=== PATIENT | male | born 1965 | race Caucasian/White ===

== ENCOUNTER → 2019-01-30 09:19 | Outpatient (CLI) | payer OTHER, SELFPAY ==
[2019-01-30 11:14] LABS: Alanine Aminotransferase 43 U/L (12-78); Albumin Level 3.8 gm/dL (3.4-5.0); Alkaline Phosphatase 66 U/L (46-116); Aspartate Amino Transferase 13 U/L (15-37); Bilirubin,Total 0.5 mg/dL (0.2-1.0); Blood Urea Nitrogen 14 mg/dL (7-18); Calcium 8.6 mg/dL (8.5-10.1); Carbon Dioxide 27 mmol/L (21.0-32.0); Chloride 103 mmol/L (98-107); Chol/HDL Ratio 4.1 (1-3.5); Cholesterol 215 mg/dL (140-200); Creatinine,Serum 0.73 mg/dL (0.70-1.30); Estimated Glomerular Filt Rate 113 ml/min (>60); GFR (African American) 137 ML/MIN (>60); Globulin 3.8 gm/dl (1.3-3.2); Glucose 93 mg/dL (74-106); HDL Cholesterol 53 mg/dL (27-67); LDL Cholesterol 146 mg/dL (0-130); Sodium 140 mmol/L (136-145); Thyroid Stimulating Hormone 0.98 uIU/ml (0.358-3.740); Total Protein,Serum 7.6 gm/dL (6.4-8.2); Triglycerides 80 mg/dL (30-200); VLDL Cholesterol 16 mg/dL (0-40)
[2019-02-02 13:18] LABS: Levetiracetam (Keppra) 25.4 ug/mL (10.0-40.0)
== END ==
PROVIDERS: Visit Provider Family Medicine
DX: G40.909 Epilepsy, unspecified, not intractable, without status epilepticus (principal); Z79.899 Other long term (current) drug therapy; Z13.1 Encounter for screening for diabetes mellitus; Z13.220 Encounter for screening for lipoid disorders
CPT/HCPCS: 36415; 80053; 80061; 80177; 84443

== ENCOUNTER 2019-02-02 08:21 | Day surgery (SDC) | payer OTHER, SELFPAY ==
[2019-02-02] VITALS (7 sets, daily range): BP systolic 100–117; BP diastolic 67–78; PULSE 57–71; RESP 12–18; TEMP 36.1–37.1; O2SAT 94–98; BMI 29.1
--- NOTE | 2019-02-02 09:50 | P.PCN_ITS ---
[facility] Procedure Note Procedure Note:: Upper Endoscopy Procedure Report: Esophagogastroduodenoscopy with cold biopsies Endoscopost: Edvin Campbell II, MD Referring Physician: Jay Edgar MD Date of Procedure: February 02, 2019 Equipment: Olympus GIF 180 standard upper endoscope Sedation: MAC sedation Indications: Mr. Iraheta is a 53-year-old gentleman who is here for upper endoscopy for Payne's surveillance. The patient was diagnosed with Payne's several years ago and reportedly had radiofrequency ablation/Barrx procedure in [place]. His last upper endoscopy was 3 to 4 years ago. His GERD is controlled with Prilosec daily. He reports no indigestion, dyspepsia or dysphagia. Procedure: Prior to the procedure, a history and physical exam was performed, and patient's medications and allergies were reviewed. The risks, benefits and alternatives of the sedation and procedure were discussed with the patient. All questions were answered and informed consent was obtained. The patient was brought to the procedure room. Patient identification and proposed procedure were verified by the physician and the nurse. The patient was placed in a left lateral decubitus position and the scope was passed under direct vision. Throughout the procedure, the patient's blood pressure, pulse, and oxygen saturations were monitored continuously. The upper GI endoscopy was accomplished without difficulty. The patient tolerated the procedure well. Findings: The scope was passed directly into the upper esophagus and advanced to the third portion of the duodenum. The post bulbar duodenum and duodenal bulb were normal with normal mucosa and conniventes. The scope was withdrawn through a normal duodenal bulb and pylorus into the stomach. There was mild reactive gastropathy of the antrum. The remainder of the antrum, body and fundus of the stomach were grossly normal. Upon retroflexion there was a 2 to 3 cm hiatal hernia. The scope was then withdrawn into the esophagus. There was no evidence of reflux esophagitis. There were at least 3 short tongues and 2 small islands of salmon-colored mucosa in the distal esophagus consistent with some residual Payne's esophagus. The narrowband imaging/NBI was utilized to evaluate for areas of possible dysplasia. Cold biopsies were obtained from 2 separate sites of the Payne's in the distal esophagus. There was no evidence of any dysplasia. There was no strictures and the remainder of the esophageal mucosa was normal. Impression: 1. Short segment Payne's esophagus 2. Small 2 to 3 cm hiatal hernia Plan: I will follow up the biopsies and recommend surveillance upper endoscopy again in 3 years. If there is any evidence of dysplasia on the Payne's biopsies then I would repeat radiofrequency ablation for low-grade dysplasia.
== END 2019-02-02 10:30 | disposition home or self-care (01) ==
LOC: OUTP 08:23
PROVIDERS: PCP Family Medicine; Visit Provider Internal Medicine Gastroenterology
PROC: 0DJ08ZZ Inspection of Upper Intestinal Tract, Via Natural or Artificial Opening Endoscopic (ICD-10-PCS; CPT 43235; principal; 2019-02-02 09:30)
DX: K22.70 Barrett's esophagus without dysplasia (principal); K44.9 Diaphragmatic hernia without obstruction or gangrene
CPT/HCPCS: 43239

== ENCOUNTER → 2020-11-19 13:46 | Outpatient (CLI) | payer SELFPAY ==
[2020-11-19 16:29] LABS: Coronavirus 19 IgG Antibody Negative (Negative); Coronavirus 19 IgM Antibody Negative (Negative)
== END ==
PROVIDERS: Visit Provider Internal Medicine Gastroenterology
DX: Z01.818 Encounter for other preprocedural examination (principal); Z11.52 Encounter for screening for COVID-19; Z12.11 Encounter for screening for malignant neoplasm of colon
CPT/HCPCS: 36415; 86328

== ENCOUNTER 2020-11-21 08:10 | Day surgery (SDC) | payer BC, SELFPAY ==
[2020-11-18 13:33] VITALS: BMI 28.3
[2020-11-21 08:53] VITALS: BP 124/59; PULSE 75; RESP 18; TEMP 36.1; O2SAT 98
--- NOTE | 2020-11-21 09:55 | P.PN_ITS ---
[facility] Anesthesia Checklist - Patient Identification Patient Identification: Arm Band - Structural Data Admitted From: Home Planned Operative Procedure/s: colonoscopy Consent for Planned Operative Procedure(s) Verified: Yes Verified Documents: Surgical Consent, History and Physical - NPO Status Verified Time NPO: 00:00 - Additional verifications Anesthesia Reactions: No - Airway Assessment C-Spine Mobility Assessed: Yes (mp2) TMJ Mobility Assessed: Yes Dentition: Good Dentition - Neurological Assessment Level of Consciousness: Awake, Alert - Anesthesia Plan Anesthesia Risk discussed: Yes Anesthesia Plan: Verified ASA Class: II Anesthesia Type: MAC [facility] History I have reviewed the patient's past medical history: Yes Medical History: Reports:: Cancer (skin ca), Seizures Denies:: Diabetes Mellitus Type 1, Diabetes Mellitus Type 2, Internal Pacemaker, Lung Disease, MRSA *Have you ever received a pneumonia vaccine?: No *Have you received a flu vaccine this season?: No Anesthesia experience/problems:: nac Other Surgeries: Yes: Other. No: Pacemaker Amputation: No - *Social History Last grade of school completed: High school graduate Smoking Status: Never smoker Alcohol Intake: never Alcohol Intake Frequency:: holidays/special occasions only Substance Use Type: denies use *Occupational Status:: employed Housing: house Household Members: spouse, family *Travel in the last 8 weeks: None Family Hx:: Unable to obtain
[2020-11-21 09:56] VITALS: O2SAT 97
--- NOTE | 2020-11-21 10:16 | HMH.PROC ---
[facility] Procedure Note Procedure Note:: Colonoscopy Procedure Report: Colonoscopy with cold snare polypectomy Endoscopist: Edvin Campbell II, MD Referring physician: Jay Edgar MD Date of Procedure: November 21, 2020 Equipment: Olympus 190 variable stiffness pediatric colonoscope Sedation: MAC sedation Indication: Mr. Iraheta is a 54-year-old gentleman who is here for screening colonoscopy. He reports no abdominal pain, weight loss, change in his bowel habits or rectal bleeding. He reports no family history of colon cancer. He did have some minor constipation in the last couple of months when he was on a high-protein diet. His last colonoscopy was 10 years ago in [place] and was normal. Procedure: Prior to the procedure, a history and physical exam was performed, and patient's medications and allergies were reviewed. The risks, benefits and alternatives of the sedation and procedure were discussed with the patient. All questions were answered and informed consent was obtained. The patient was brought to the procedure room. Patient identification and proposed procedure were verified by the physician and the nurse. The patient was placed in a left lateral decubitus position and the scope was passed under direct vision. Throughout the procedure, the patient's blood pressure, pulse, and oxygen saturations were monitored continuously. The colonoscopy was accomplished without difficulty. The patient tolerated the procedure well. Findings: On digital rectal examination there was normal rectal tone. There were no external hemorrhoids. The prostate was 2+, mildly firm but symmetric without nodules. The colonoscope was introduced through the anal canal to the rectum and advanced to the cecum. The ileocecal valve and appendiceal orifice were identified. The scope was advanced a short distance into the ileum which appeared grossly normal. The scope was then withdrawn into the colon. There was a single 5 mm polyp in the descending colon removed via cold snare polypectomy. The remaining cecum, ascending, transverse, descending, sigmoid and rectum were grossly normal. There were no mucosal abnormalities identified. Upon retroflexion within the rectum there were grade 1-2 internal hemorrhoids.The preparation was excellent throughout with Lane Preparation Score of 9. The cecal time was 12 minutes. Impression: 1. Diminutive descending colon polyp 2. Grade 1-2 internal hemorrhoids Plan: I will follow up the polyp pathology and recommend repeat colonoscopy again in 7-10 years based upon the polyp histology. I would encourage bulking fiber supplementation on a long-term daily maintenance basis.
[2020-11-21 10:17] VITALS: BP 92/58; PULSE 63; RESP 20; TEMP 36.1; O2SAT 91
[2020-11-21 10:30] VITALS: BP 93/63; PULSE 69; RESP 18; O2SAT 95
[2020-11-21 10:45] VITALS: BP 112/82; PULSE 76; RESP 16; O2SAT 97
== END 2020-11-21 10:45 | disposition home or self-care (01) ==
PROVIDERS: PCP Family Medicine; Visit Provider Internal Medicine Gastroenterology
PROC: 0DJD8ZZ Inspection of Lower Intestinal Tract, Via Natural or Artificial Opening Endoscopic (ICD-10-PCS; CPT 45378; principal; 2020-11-21 09:30)
DX: Z12.11 Encounter for screening for malignant neoplasm of colon (principal); K63.5 Polyp of colon; K64.0 First degree hemorrhoids; Z85.828 Personal history of other malignant neoplasm of skin; R56.9 Unspecified convulsions; Z79.899 Other long term (current) drug therapy
CPT/HCPCS: 45385

== ENCOUNTER → 2020-12-15 13:41 | Outpatient (CLI) | payer BC, SELFPAY ==
--- NOTE | 2020-12-15 13:44 | CA_ITS ---
APPROVED REPORT Left Lower Extremity Venous Study for DVT. [place] Laborer: Yue Severino RVT Indications Lower Extremity Pain: Lower Extremity Edema: Left pain and swelling LLE X 2WKS Vein Imaging CFV (L): compressive, spontaneous, phasic, augmentation FEM (L): compressive, spontaneous, phasic, augmentation POP (L): compressive, spontaneous, phasic, augmentation PTV (L): Compressible GSV (L): Compressible Peroneals (L):Compressible GAS (L): Compressible Findings Study suggests no evidence of DVT of the left lower extremity. Study suggests no evidence of SVT of the left lower extremity. 5.3 X 1.8 cm complex lesion seen in the proximal medial calf, ? hematoma. Conclusion Study suggests no evidence of DVT of the left lower extremity. Study suggests no evidence of SVT of the left lower extremity. 5.3 X 1.8 cm complex lesion seen in the proximal medial calf, ? hematoma. Suggest folow up to determine stability/resolution Critical Notification Physician Notified Date: 12/15/2020 Time: 14:21 Physician Name: Marely Freeman office Electronically signed by : Merlin Umaña MD 12/15/2020 15:49:32
[2020-12-15 15:32] LABS: Erythrocyte Sedimentation Rate 57 mm/hr (0-20)
[2020-12-15 16:17] LABS: C-Reactive Protein 37.4 mg/L (0-4)
[2020-12-17 15:10] LABS: Anti-Centromere B Antibodies <0.2 AI (0.0-0.9); Anti-Jo-1 <0.2 AI (0.0-0.9); Anti-Smith Antibody <0.2 AI (0.0-0.9); Antichromatin Antibodies <0.2 AI (0.0-0.9); Antiscleroderma-70 Antibodies <0.2 AI (0.0-0.9); RNP Antibodies <0.2 AI (0.0-0.9); Sjogren's Anti-SS-A <0.2 AI (0.0-0.9); Sjogren's Anti-SS-B <0.2 AI (0.0-0.9)
[2020-12-17 17:16] LABS: Anti-DNA (DS) Ab Qn 1 IU/mL (0-9); RA Latex Turbid. 14.1 IU/mL (0.0-13.9)
[2020-12-18 03:36] LABS: PTT-LA 42.9 sec (0.0-51.9); dRVVT 43.6 sec (0.0-47.0)
[2020-12-18 09:16] LABS: Anti-Cyclic Citrullinated Pept >250 units (0-19); Lupus Reflex Interpretation Comment: (.)
== END ==
PROVIDERS: PCP Physician Assistant; Visit Provider Physician Assistant
DX: M79.605 Pain in left leg (principal); M79.89 Other specified soft tissue disorders; M25.50 Pain in unspecified joint; R79.82 Elevated C-reactive protein (CRP)
CPT/HCPCS: 85613; 85651; 86140; 86200; 86225; 86235; 86431; 86618; 93971

== ENCOUNTER → 2021-02-16 11:29 | Outpatient (CLI) | payer BC, SELFPAY ==
[2021-02-16 12:37] VITALS: BMI 34.8
== END ==
LOC: LAB 11:29 → UTC.OUT 11:49
PROVIDERS: PCP Physician Assistant; Visit Provider Nurse Practitioner
DX: Z11.1 Encounter for screening for respiratory tuberculosis (principal)
CPT/HCPCS: 86580

== ENCOUNTER → 2021-05-27 10:32 | Outpatient (CLI) | payer BC, SELFPAY ==
[2021-05-27 11:23] LABS: Chloride 105 mmol/L (98-107); Potassium 4.7 mmoL/L (3.5-5.1); Sodium 138 mmol/L (136-145)
[2021-05-27 11:25] LABS: Basophils # 0.1 K/mm3 (0-0.2); Basophils % 0.4 % (0.1-2.0); Blood Urea Nitrogen 20 mg/dl (9-20); Eosinophils # 0.1 K/mm3 (0.0-0.4); Eosinophils % 0.6 % (0.1-12.0); Estimated Glomerular Filt Rate 118 ml/min (>60); GFR (African American) 142 ML/MIN (>60); Hematocrit 41.4 % (42.0-52.0); Hemoglobin 13.2 g/dL (14.1-18.0); Lymphocytes # 1.4 K/mm3 (0.7-4.5); Lymphocytes % 10.1 % (10-50); Mean Corpuscular HGB Conc 31.9 g/dL (31.8-35.4); Mean Corpuscular Hemoglobin 28.7 pg (27.0-31.2); Mean Corpuscular Volume 89.9 fl (80-94); Mean Platelet Volume 7.6 fl (7.4-10.4); Monocytes # 0.4 K/mm3 (0.1-1.0); Monocytes % 2.5 % (1.7-9.3); Neutrophils # 12.3 K/mm3 (1.8-7.8); Neutrophils % 86.5 % (37.0-80.0); Platelet Count 374 K/mm3 (142-424); White Blood Count 14.3 K/mm3 (4.8-10.8)
[2021-05-27 11:26] LABS: Alanine Aminotransferase 27 U/L (12-78); Albumin Level 3.7 g/dl (3.5-5.0); Albumin/Globulin Ratio 1.2 (1.1-1.8); Alkaline Phosphatase 69 U/L (38-126); Anion Gap 13.7 mEq/L (5-15); Aspartate Amino Transferase 24 U/L (17-59); Bilirubin,Total 0.4 mg/dl (0.2-1.3); Calcium 9.2 mg/dl (8.4-10.2); Carbon Dioxide 24 mmol/L (22.0-30.0); Globulin 3.2 g/dL (1.3-3.2); Glucose 113 mg/dl (74-100); Total Protein,Serum 6.9 g/dl (6.3-8.2)
[2021-05-27 11:32] LABS: C-Reactive Protein 50.4 mg/L (0-4); MANUAL DIFFERENTIAL MANUAL DIFFERENTIAL (MANUAL DIFF)
[2021-05-27 12:17] LABS: Lymphocytes % 12 % (10-50); Monocytes % 1 % (2-9); Neutrophils % 87 % (42-76); Total Cells Counted 100
[2021-05-27 12:21] LABS: Platelet Estimate Normal
[2021-05-27 14:43] LABS: Erythrocyte Sedimentation Rate 81 mm/hr (0-20)
== END ==
PROVIDERS: Visit Provider Internal Medicine Rheumatology
DX: M06.9 Rheumatoid arthritis, unspecified (principal); Z79.899 Other long term (current) drug therapy
CPT/HCPCS: 36415; 80053; 85007; 85025; 85651; 86140

== ENCOUNTER → 2021-07-16 13:09 | Outpatient (CLI) | payer BC, SELFPAY ==
[2021-07-16 13:23] LABS: Basophils # 0.1 K/mm3 (0-0.2); Basophils % 0.7 % (0.1-2.0); Eosinophils # 0.2 K/mm3 (0.0-0.4); Eosinophils % 1.2 % (0.1-12.0); Hematocrit 45.3 % (42.0-52.0); Hemoglobin 14.8 g/dL (14.1-18.0); Lymphocytes % 13.3 % (10-50); Mean Corpuscular HGB Conc 32.7 g/dL (31.8-35.4); Mean Corpuscular Hemoglobin 29.7 pg (27.0-31.2); Mean Corpuscular Volume 90.8 fl (80-94); Mean Platelet Volume 7.9 fl (7.4-10.4); Monocytes # 0.6 K/mm3 (0.1-1.0); Monocytes % 3.7 % (1.7-9.3); Neutrophils # 12.2 K/mm3 (1.8-7.8); Neutrophils % 81.2 % (37.0-80.0); Platelet Count 355 K/mm3 (142-424); Red Blood Count 4.98 M/mm3 (4.60-6.20); Red Cell Distribution Width 15.5 % (11.5-17.5)
[2021-07-16 13:25] LABS: MANUAL DIFFERENTIAL MANUAL DIFFERENTIAL (MANUAL DIFF)
[2021-07-16 13:40] LABS: Lymphocytes % 8 % (10-50); Monocytes % 3 % (2-9); Neutrophils % 89 % (42-76); Total Cells Counted 100
[2021-07-16 13:41] LABS: Platelet Estimate Normal
[2021-07-16 14:03] LABS: Erythrocyte Sedimentation Rate 11 mm/hr (0-20)
[2021-07-16 14:29] LABS: Alanine Aminotransferase 25 U/L (12-78); Albumin Level 4.2 g/dl (3.5-5.0); Albumin/Globulin Ratio 1.4 (1.1-1.8); Alkaline Phosphatase 70 U/L (38-126); Anion Gap 12.7 mEq/L (5-15); Aspartate Amino Transferase 22 U/L (17-59); Bilirubin,Total 0.4 mg/dl (0.2-1.3); Blood Urea Nitrogen 19 mg/dl (9-20); Calcium 9.4 mg/dl (8.4-10.2); Carbon Dioxide 27 mmol/L (22.0-30.0); Chloride 102 mmol/L (98-107); Estimated Glomerular Filt Rate 140 ml/min (>60); GFR (African American) 170 ML/MIN (>60); Globulin 3.1 g/dL (1.3-3.2); Glucose 103 mg/dl (74-100); Potassium 4.7 mmoL/L (3.5-5.1); Sodium 137 mmol/L (136-145); Total Protein,Serum 7.3 g/dl (6.3-8.2)
[2021-07-16 14:34] LABS: C-Reactive Protein 27.1 mg/L (0-4)
== END ==
PROVIDERS: Visit Provider Nurse Practitioner Women's Health
DX: M06.9 Rheumatoid arthritis, unspecified (principal); Z79.899 Other long term (current) drug therapy
CPT/HCPCS: 36415; 80053; 85007; 85025; 85651; 86140

== ENCOUNTER → 2021-08-20 07:15 | Outpatient (CLI) | payer BC, SELFPAY ==
[2021-08-20 07:31] LABS: Basophils # 0.2 K/mm3 (0-0.2); Basophils % 1.4 % (0.1-2.0); Eosinophils # 0.3 K/mm3 (0.0-0.4); Eosinophils % 2.9 % (0.1-12.0); Hematocrit 45.7 % (42.0-52.0); Lymphocytes # 3.7 K/mm3 (0.7-4.5); Lymphocytes % 33.4 % (10-50); Mean Corpuscular HGB Conc 32.8 g/dL (31.8-35.4); Mean Corpuscular Hemoglobin 29.6 pg (27.0-31.2); Mean Corpuscular Volume 90.3 fl (80-94); Mean Platelet Volume 7.6 fl (7.4-10.4); Monocytes # 0.6 K/mm3 (0.1-1.0); Monocytes % 5.4 % (1.7-9.3); Neutrophils # 6.3 K/mm3 (1.8-7.8); Neutrophils % 56.9 % (37.0-80.0); Platelet Count 317 K/mm3 (142-424); Red Blood Count 5.06 M/mm3 (4.60-6.20); Red Cell Distribution Width 14.8 % (11.5-17.5); White Blood Count 11.1 K/mm3 (4.8-10.8)
[2021-08-20 07:54] LABS: Erythrocyte Sedimentation Rate 8 mm/hr (0-20)
[2021-08-20 08:11] LABS: Alanine Aminotransferase 27 U/L (12-78); Albumin Level 4.1 g/dl (3.5-5.0); Albumin/Globulin Ratio 1.4 (1.1-1.8); Alkaline Phosphatase 58 U/L (38-126); Anion Gap 9.1 mEq/L (5-15); Aspartate Amino Transferase 22 U/L (17-59); Bilirubin,Total 0.6 mg/dl (0.2-1.3); Blood Urea Nitrogen 20 mg/dl (9-20); Calcium 9.7 mg/dl (8.4-10.2); Carbon Dioxide 31 mmol/L (22.0-30.0); Chloride 100 mmol/L (98-107); Estimated Glomerular Filt Rate 118 ml/min (>60); GFR (African American) 142 ML/MIN (>60); Globulin 2.9 g/dL (1.3-3.2); Glucose 86 mg/dl (74-100); Potassium 4.1 mmoL/L (3.5-5.1); Sodium 136 mmol/L (136-145)
[2021-08-20 08:16] LABS: C-Reactive Protein 21.7 mg/L (0-4)
== END ==
PROVIDERS: Visit Provider Internal Medicine Rheumatology
DX: M06.09 Rheumatoid arthritis without rheumatoid factor, multiple sites (principal); Z79.899 Other long term (current) drug therapy
CPT/HCPCS: 36415; 80053; 85025; 85651; 86140

== ENCOUNTER → 2021-10-05 10:44 | Outpatient (CLI) | payer OTHER, SELFPAY ==
[2021-10-05 11:42] LABS: Basophils # 0.1 K/mm3 (0-0.2); Basophils % 0.9 % (0.1-2.0); Eosinophils # 0.1 K/mm3 (0.0-0.4); Hematocrit 48.8 % (42.0-52.0); Hemoglobin 16.1 g/dL (14.1-18.0); Lymphocytes # 1.6 K/mm3 (0.7-4.5); Mean Corpuscular HGB Conc 32.9 g/dL (31.8-35.4); Mean Corpuscular Hemoglobin 30.8 pg (27.0-31.2); Mean Corpuscular Volume 93.6 fl (80-94); Mean Platelet Volume 8.2 fl (7.4-10.4); Monocytes # 0.4 K/mm3 (0.1-1.0); Monocytes % 3.9 % (1.7-9.3); Neutrophils # 8.4 K/mm3 (1.8-7.8); Neutrophils % 79.3 % (37.0-80.0); Platelet Count 299 K/mm3 (142-424); Red Blood Count 5.22 M/mm3 (4.60-6.20); Red Cell Distribution Width 15.2 % (11.5-17.5); White Blood Count 10.6 K/mm3 (4.8-10.8)
[2021-10-05 12:56] LABS: Alanine Aminotransferase 29 U/L (12-78); Albumin Level 4.3 g/dl (3.5-5.0); Alkaline Phosphatase 70 U/L (38-126); Aspartate Amino Transferase 24 U/L (17-59); Bilirubin,Indirect 0.4 mg/dL (0.0-0.9); Bilirubin,Total 0.4 mg/dl (0.2-1.3); Bilirubin,Unconjugated 0.3 mg/dL (0.0-1.1); Estimated Glomerular Filt Rate 88 ml/min (>60); GFR (African American) 106 ML/MIN (>60); Total Protein,Serum 7.3 g/dl (6.3-8.2)
[2021-10-05 13:02] LABS: C-Reactive Protein 8.9 mg/L (0-4)
[2021-10-05 13:39] LABS: Erythrocyte Sedimentation Rate 6 mm/hr (0-20)
== END ==
PROVIDERS: PCP Internal Medicine Rheumatology; Visit Provider Internal Medicine Rheumatology
DX: M06.9 Rheumatoid arthritis, unspecified (principal); Z79.899 Other long term (current) drug therapy
CPT/HCPCS: 36415; 80076; 82565; 85025; 85651; 86140

== ENCOUNTER → 2021-12-08 16:00 | Outpatient (CLI) | payer OTHER, SELFPAY ==
[2021-12-08 18:14] LABS: Basophils # 0.1 K/mm3 (0-0.2); Basophils % 0.7 % (0.1-2.0); Eosinophils # 0.2 K/mm3 (0.0-0.4); Eosinophils % 1.7 % (0.1-12.0); Hematocrit 46.7 % (42.0-52.0); Hemoglobin 15.7 g/dL (14.1-18.0); Lymphocytes # 2.4 K/mm3 (0.7-4.5); Lymphocytes % 27.6 % (10-50); Mean Corpuscular HGB Conc 33.6 g/dL (31.8-35.4); Mean Corpuscular Hemoglobin 31.8 pg (27.0-31.2); Mean Corpuscular Volume 94.6 fl (80-94); Mean Platelet Volume 10.3 fl (7.4-10.4); Monocytes # 0.5 K/mm3 (0.1-1.0); Monocytes % 5.2 % (1.7-9.3); Neutrophils # 5.6 K/mm3 (1.8-7.8); Neutrophils % 64.8 % (37.0-80.0); Platelet Count 321 K/mm3 (142-424); Red Blood Count 4.93 M/mm3 (4.60-6.20); Red Cell Distribution Width 15.2 % (11.5-17.5); White Blood Count 8.6 K/mm3 (4.8-10.8)
[2021-12-08 18:25] LABS: Alanine Aminotransferase 39 U/L (12-78); Albumin Level 4.2 g/dl (3.5-5.0); Albumin/Globulin Ratio 1.6 (1.1-1.8); Alkaline Phosphatase 74 U/L (38-126); Anion Gap 13.2 mEq/L (5-15); Aspartate Amino Transferase 27 U/L (17-59); Bilirubin,Total 0.4 mg/dl (0.2-1.3); Blood Urea Nitrogen 14 mg/dl (9-20); Carbon Dioxide 24 mmol/L (22.0-30.0); Chloride 107 mmol/L (98-107); Estimated Glomerular Filt Rate 118 ml/min (>60); GFR (African American) 142 ML/MIN (>60); Globulin 2.7 g/dL (1.3-3.2); Glucose 107 mg/dl (74-100); HDL Cholesterol 57 mg/dl (40-60); Potassium 4.2 mmoL/L (3.5-5.1); Sodium 140 mmol/L (136-145); Total Protein,Serum 6.9 g/dl (6.3-8.2)
[2021-12-08 18:36] LABS: Direct LDL Cholesterol 97.02 mg/dL (100-129)
[2021-12-08 18:40] LABS: Hemoglobin A1C 5.9 % (4.0-6.0)
[2021-12-08 18:42] LABS: 25-OH Vitamin D, Total 27.7 ng/mL (30-100)
[2021-12-08 18:56] LABS: Prostate Specific Ag Screen 1.8 ng/ml (0.0-4.0); Thyroid Stimulating Hormone 0.65 uIU/mL (0.465-4.68)
[2021-12-08 19:25] LABS: Chol/HDL Ratio 3.6 (1-3.5); Cholesterol 203 mg/dl (140-200); Triglycerides 230 mg/dl (30-150); VLDL Cholesterol 46 mg/dL (0-40)
[2021-12-14 12:46] LABS: Levetiracetam (Keppra) 12.6 ug/mL (10.0-40.0)
== END ==
PROVIDERS: Visit Provider Physician Assistant
DX: Z00.00 Encounter for general adult medical examination without abnormal findings (principal); Z12.5 Encounter for screening for malignant neoplasm of prostate; E55.9 Vitamin D deficiency, unspecified
CPT/HCPCS: 80053; 80061; 80177; 82306; 83036; 84443; 85025; G0103

== ENCOUNTER → 2022-01-05 15:48 | Outpatient (POV) | payer OTHER, SELFPAY | PROVIDERS: Visit Provider Dermatology | DX: Z00.00 Encounter for general adult medical examination without abnormal findings (principal) ==

== ENCOUNTER → 2022-02-08 10:29 | Outpatient (CLI) | payer OTHER, SELFPAY ==
[2022-02-08 10:44] LABS: Basophils # 0.2 K/mm3 (0-0.2); Basophils % 1.8 % (0.1-2.0); Eosinophils # 0.2 K/mm3 (0.0-0.4); Eosinophils % 1.9 % (0.1-12.0); Hematocrit 45.9 % (42.0-52.0); Hemoglobin 15.2 g/dL (14.1-18.0); Lymphocytes # 2.6 K/mm3 (0.7-4.5); Lymphocytes % 28.9 % (10-50); Mean Corpuscular HGB Conc 33.1 g/dL (31.8-35.4); Mean Corpuscular Hemoglobin 31.3 pg (27.0-31.2); Mean Corpuscular Volume 94.5 fl (80-94); Mean Platelet Volume 7.8 fl (7.4-10.4); Monocytes # 0.4 K/mm3 (0.1-1.0); Monocytes % 4.8 % (1.7-9.3); Neutrophils # 5.7 K/mm3 (1.8-7.8); Neutrophils % 62.5 % (37.0-80.0); Platelet Count 286 K/mm3 (142-424); Red Blood Count 4.85 M/mm3 (4.60-6.20); Red Cell Distribution Width 14.7 % (11.5-17.5); White Blood Count 9.1 K/mm3 (4.8-10.8)
[2022-02-08 12:03] LABS: Alanine Aminotransferase 38 U/L (12-78); Albumin Level 4.1 g/dl (3.5-5.0); Alkaline Phosphatase 74 U/L (38-126); Aspartate Amino Transferase 29 U/L (17-59); Bilirubin,Indirect 0.5 mg/dL (0.0-0.9); Bilirubin,Total 0.5 mg/dl (0.2-1.3); Bilirubin,Unconjugated 0.7 mg/dL (0.0-1.1); Estimated Glomerular Filt Rate 100 ml/min (>60); GFR (African American) 121 ML/MIN (>60); Total Protein,Serum 6.7 g/dl (6.3-8.2)
[2022-02-08 12:09] LABS: C-Reactive Protein 4.1 mg/L (0-4)
[2022-02-08 12:42] LABS: Erythrocyte Sedimentation Rate 6 mm/hr (0-20)
== END ==
PROVIDERS: PCP Physician Assistant; Visit Provider Internal Medicine Rheumatology
DX: M06.9 Rheumatoid arthritis, unspecified (principal); Z79.899 Other long term (current) drug therapy
CPT/HCPCS: 36415; 80076; 82565; 85025; 85651; 86140

== ENCOUNTER → 2022-04-15 08:13 | Outpatient (CLI) | payer OTHER, SELFPAY ==
[2022-04-15 09:10] LABS: Basophils # 0.1 K/mm3 (0-0.2); Basophils % 0.9 % (0.1-2.0); Eosinophils # 0.3 K/mm3 (0.0-0.4); Eosinophils % 2.6 % (0.1-12.0); Hematocrit 47.3 % (42.0-52.0); Hemoglobin 14.9 g/dL (14.1-18.0); Lymphocytes # 2.9 K/mm3 (0.7-4.5); Lymphocytes % 29.2 % (10-50); Mean Corpuscular HGB Conc 31.5 g/dL (31.8-35.4); Mean Corpuscular Hemoglobin 30.5 pg (27.0-31.2); Mean Corpuscular Volume 96.7 fl (80-94); Mean Platelet Volume 8.1 fl (7.4-10.4); Monocytes # 0.5 K/mm3 (0.1-1.0); Monocytes % 5.4 % (1.7-9.3); Neutrophils # 6.2 K/mm3 (1.8-7.8); Neutrophils % 61.9 % (37.0-80.0); Platelet Count 265 K/mm3 (142-424); Red Blood Count 4.89 M/mm3 (4.60-6.20); Red Cell Distribution Width 14.9 % (11.5-17.5)
[2022-04-15 09:46] LABS: Erythrocyte Sedimentation Rate 3 mm/hr (0-20)
[2022-04-15 09:57] LABS: Alanine Aminotransferase 34 U/L (12-78); Alkaline Phosphatase 84 U/L (38-126); Aspartate Amino Transferase 29 U/L (17-59); Bilirubin,Direct 0.2 mg/dl (0.0-0.4); Bilirubin,Indirect 0.4 mg/dL (0.0-0.9); Bilirubin,Total 0.6 mg/dl (0.2-1.3); Bilirubin,Unconjugated 0.4 mg/dL (0.0-1.1); Estimated Glomerular Filt Rate 117 ml/min (>60); GFR (African American) 142 ML/MIN (>60); Total Protein,Serum 7.1 g/dl (6.3-8.2)
[2022-04-15 10:02] LABS: C-Reactive Protein 12.9 mg/L (0-4)
== END ==
PROVIDERS: PCP Physician Assistant; Visit Provider Internal Medicine Rheumatology
DX: M06.9 Rheumatoid arthritis, unspecified (principal); Z79.899 Other long term (current) drug therapy
CPT/HCPCS: 36415; 80076; 82565; 85025; 85651; 86140

== ENCOUNTER → 2022-06-04 08:56 | Outpatient (CLI) | payer OTHER, SELFPAY ==
[2022-06-04 10:08] LABS: Basophils # 0.1 K/mm3 (0-0.2); Basophils % 1.4 % (0.1-2.0); Eosinophils # 0.3 K/mm3 (0.0-0.4); Eosinophils % 3.1 % (0.1-12.0); Hematocrit 46.9 % (42.0-52.0); Hemoglobin 15.2 g/dL (14.1-18.0); Lymphocytes # 4.1 K/mm3 (0.7-4.5); Lymphocytes % 43.6 % (10-50); Mean Corpuscular HGB Conc 32.4 g/dL (31.8-35.4); Mean Corpuscular Hemoglobin 30.5 pg (27.0-31.2); Mean Corpuscular Volume 94.3 fl (80-94); Mean Platelet Volume 8.4 fl (7.4-10.4); Monocytes # 0.7 K/mm3 (0.1-1.0); Monocytes % 6.9 % (1.7-9.3); Neutrophils # 4.2 K/mm3 (1.8-7.8); Neutrophils % 44.9 % (37.0-80.0); Platelet Count 283 K/mm3 (142-424); Red Blood Count 4.97 M/mm3 (4.60-6.20); Red Cell Distribution Width 14.8 % (11.5-17.5); White Blood Count 9.5 K/mm3 (4.8-10.8)
[2022-06-04 10:38] LABS: Erythrocyte Sedimentation Rate 3 mm/hr (0-20)
[2022-06-04 12:04] LABS: Alanine Aminotransferase 35 U/L (12-78); Alkaline Phosphatase 82 U/L (38-126); Aspartate Amino Transferase 25 U/L (17-59); Bilirubin,Indirect 0.3 mg/dL (0.0-0.9); Bilirubin,Total 0.3 mg/dl (0.2-1.3); Bilirubin,Unconjugated 0.4 mg/dL (0.0-1.1); Estimated Glomerular Filt Rate 117 ml/min (>60); GFR (African American) 142 ML/MIN (>60)
[2022-06-04 12:11] LABS: C-Reactive Protein 1.8 mg/L (0-4)
== END ==
PROVIDERS: PCP Physician Assistant; Visit Provider Internal Medicine Rheumatology
DX: M06.9 Rheumatoid arthritis, unspecified (principal); Z79.899 Other long term (current) drug therapy
CPT/HCPCS: 36415; 80076; 82565; 85025; 85651; 86140

== ENCOUNTER → 2022-07-30 10:15 | Outpatient (CLI) | payer OTHER, SELFPAY ==
[2022-07-30 11:22] LABS: Basophils # 0.2 K/mm3 (0-0.2); Basophils % 1.8 % (0.1-2.0); Eosinophils # 0.3 K/mm3 (0.0-0.4); Hematocrit 46.8 % (42.0-52.0); Hemoglobin 15.9 g/dL (14.1-18.0); Lymphocytes # 3.7 K/mm3 (0.7-4.5); Lymphocytes % 39.8 % (10-50); Mean Corpuscular HGB Conc 33.9 g/dL (31.8-35.4); Mean Corpuscular Hemoglobin 31.8 pg (27.0-31.2); Mean Corpuscular Volume 93.9 fl (80-94); Mean Platelet Volume 8.3 fl (7.4-10.4); Monocytes # 0.6 K/mm3 (0.1-1.0); Monocytes % 6.2 % (1.7-9.3); Neutrophils # 4.6 K/mm3 (1.8-7.8); Neutrophils % 49.2 % (37.0-80.0); Platelet Count 264 K/mm3 (142-424); Red Blood Count 4.99 M/mm3 (4.60-6.20); Red Cell Distribution Width 14.9 % (11.5-17.5); White Blood Count 9.3 K/mm3 (4.8-10.8)
[2022-07-30 11:27] LABS: Alanine Aminotransferase 40 U/L (12-78); Albumin Level 4.4 g/dl (3.5-5.0); Albumin/Globulin Ratio 1.6 (1.1-1.8); Alkaline Phosphatase 94 U/L (38-126); Anion Gap 17.4 mEq/L (5-15); Aspartate Amino Transferase 26 U/L (17-59); Bilirubin,Total 0.4 mg/dl (0.2-1.3); Blood Urea Nitrogen 19 mg/dl (9-20); Calcium 9.7 mg/dl (8.4-10.2); Carbon Dioxide 26 mmol/L (22.0-30.0); Chloride 101 mmol/L (98-107); Estimated Glomerular Filt Rate 100 ml/min (>60); GFR (African American) 121 ML/MIN (>60); Globulin 2.8 g/dL (1.3-3.2); Glucose 97 mg/dl (74-100); Potassium 4.4 mmoL/L (3.5-5.1); Sodium 140 mmol/L (136-145); Total Protein,Serum 7.2 g/dl (6.3-8.2)
[2022-07-30 11:33] LABS: C-Reactive Protein 1.8 mg/L (0-4)
[2022-07-30 12:01] LABS: Erythrocyte Sedimentation Rate 3 mm/hr (0-20)
== END ==
PROVIDERS: PCP Physician Assistant; Visit Provider Nurse Practitioner Family
DX: D89.9 Disorder involving the immune mechanism, unspecified (principal); G40.909 Epilepsy, unspecified, not intractable, without status epilepticus; K21.9 Gastro-esophageal reflux disease without esophagitis; M06.9 Rheumatoid arthritis, unspecified; R53.83 Other fatigue
CPT/HCPCS: 36415; 80053; 85025; 85651; 86140

== ENCOUNTER → 2022-09-08 10:27 | Outpatient (CLI) | payer OTHER, SELFPAY ==
[2022-09-08 12:31] LABS: Chloride 106 mmol/L (98-107)
[2022-09-08 12:32] LABS: Potassium 4.2 mmoL/L (3.5-5.1); Sodium 139 mmol/L (136-145)
[2022-09-08 12:34] LABS: Alanine Aminotransferase 47 U/L (12-78); Aspartate Amino Transferase 29 U/L (17-59); Blood Urea Nitrogen 17 mg/dl (9-20); Estimated Glomerular Filt Rate 88 ml/min (>60); GFR (African American) 106 ML/MIN (>60)
[2022-09-08 12:35] LABS: Albumin Level 4.1 g/dl (3.5-5.0); Albumin/Globulin Ratio 1.5 (1.1-1.8); Alkaline Phosphatase 64 U/L (38-126); Anion Gap 14.2 mEq/L (5-15); Bilirubin,Total 0.7 mg/dl (0.2-1.3); Calcium 8.9 mg/dl (8.4-10.2); Carbon Dioxide 23 mmol/L (22.0-30.0); Globulin 2.8 g/dL (1.3-3.2); Glucose 106 mg/dl (74-100); Total Protein,Serum 6.9 g/dl (6.3-8.2)
[2022-09-08 12:41] LABS: Basophils # 0.1 K/mm3 (0-0.2); Eosinophils # 0.2 K/mm3 (0.0-0.4); Eosinophils % 2.5 % (0.1-12.0); Hematocrit 46.8 % (42.0-52.0); Hemoglobin 15.3 g/dL (14.1-18.0); Lymphocytes # 3.5 K/mm3 (0.7-4.5); Lymphocytes % 40.7 % (10-50); Mean Corpuscular HGB Conc 32.7 g/dL (31.8-35.4); Mean Corpuscular Hemoglobin 31.1 pg (27.0-31.2); Mean Platelet Volume 9.3 fl (7.4-10.4); Monocytes # 0.5 K/mm3 (0.1-1.0); Monocytes % 6.1 % (1.7-9.3); Neutrophils # 4.2 K/mm3 (1.8-7.8); Neutrophils % 49.6 % (37.0-80.0); Platelet Count 297 K/mm3 (142-424); Red Blood Count 4.92 M/mm3 (4.60-6.20); Red Cell Distribution Width 14.7 % (11.5-17.5); White Blood Count 8.5 K/mm3 (4.8-10.8)
[2022-09-08 13:51] LABS: Erythrocyte Sedimentation Rate 2 mm/hr (0-20)
== END ==
PROVIDERS: PCP Physician Assistant; Visit Provider Nurse Practitioner Family
DX: D89.9 Disorder involving the immune mechanism, unspecified (principal); G40.909 Epilepsy, unspecified, not intractable, without status epilepticus; K21.9 Gastro-esophageal reflux disease without esophagitis; M06.9 Rheumatoid arthritis, unspecified; R53.83 Other fatigue
CPT/HCPCS: 36415; 80053; 85025; 85651; 86140

== ENCOUNTER → 2022-10-22 10:09 | Outpatient (CLI) | payer OTHER, SELFPAY ==
[2022-10-22 11:34] LABS: Basophils # 0.1 K/mm3 (0-0.2); Eosinophils # 0.2 K/mm3 (0.0-0.4); Eosinophils % 2.7 % (0.1-12.0); Hematocrit 48.5 % (42.0-52.0); Hemoglobin 16.3 g/dL (14.1-18.0); Lymphocytes # 3.3 K/mm3 (0.7-4.5); Lymphocytes % 38.9 % (10-50); Mean Corpuscular HGB Conc 33.7 g/dL (31.8-35.4); Mean Corpuscular Hemoglobin 32.1 pg (27.0-31.2); Mean Corpuscular Volume 95.5 fl (80-94); Mean Platelet Volume 7.7 fl (7.4-10.4); Monocytes # 0.6 K/mm3 (0.1-1.0); Monocytes % 6.7 % (1.7-9.3); Neutrophils # 4.3 K/mm3 (1.8-7.8); Neutrophils % 50.8 % (37.0-80.0); Platelet Count 226 K/mm3 (142-424); Red Blood Count 5.07 M/mm3 (4.60-6.20); Red Cell Distribution Width 14.3 % (11.5-17.5); White Blood Count 8.5 K/mm3 (4.8-10.8)
[2022-10-22 12:00] LABS: Alanine Aminotransferase 50 U/L (12-78); Albumin Level 4.5 g/dl (3.5-5.0); Alkaline Phosphatase 76 U/L (38-126); Aspartate Amino Transferase 26 U/L (17-59); Bilirubin,Direct 0.1 mg/dl (0.0-0.4); Bilirubin,Indirect 0.5 mg/dL (0.0-0.9); Bilirubin,Total 0.6 mg/dl (0.2-1.3); Bilirubin,Unconjugated 0.4 mg/dL (0.0-1.1); Erythrocyte Sedimentation Rate 2 mm/hr (0-20); Estimated Glomerular Filt Rate 100 ml/min (>60); GFR (African American) 121 ML/MIN (>60); Total Protein,Serum 7.5 g/dl (6.3-8.2)
[2022-10-22 12:06] LABS: C-Reactive Protein 1.7 mg/L (0-4)
== END | disposition home or self-care (01) ==
PROVIDERS: PCP Physician Assistant; Visit Provider Internal Medicine Rheumatology
DX: M06.9 Rheumatoid arthritis, unspecified (principal); Z79.899 Other long term (current) drug therapy
CPT/HCPCS: 36415; 80076; 82565; 85025; 85651; 86140

== ENCOUNTER → 2022-12-06 09:38 | Outpatient (CLI) | payer OTHER, SELFPAY ==
[2022-12-06 10:15] LABS: Basophils # 0.2 K/mm3 (0-0.2); Basophils % 1.7 % (0.1-2.0); Eosinophils # 0.3 K/mm3 (0.0-0.4); Eosinophils % 2.9 % (0.1-12.0); Hematocrit 47.8 % (42.0-52.0); Hemoglobin 15.4 g/dL (14.1-18.0); Lymphocytes # 3.7 K/mm3 (0.7-4.5); Mean Corpuscular HGB Conc 32.3 g/dL (31.8-35.4); Mean Corpuscular Hemoglobin 30.2 pg (27.0-31.2); Mean Corpuscular Volume 93.6 fl (80-94); Mean Platelet Volume 8.3 fl (7.4-10.4); Monocytes # 0.5 K/mm3 (0.1-1.0); Monocytes % 5.9 % (1.7-9.3); Neutrophils # 4.1 K/mm3 (1.8-7.8); Neutrophils % 47.5 % (37.0-80.0); Platelet Count 220 K/mm3 (142-424); Red Blood Count 5.11 M/mm3 (4.60-6.20); Red Cell Distribution Width 13.9 % (11.5-17.5); White Blood Count 8.7 K/mm3 (4.8-10.8)
[2022-12-06 10:39] LABS: Alanine Aminotransferase 47 U/L (12-78); Albumin Level 4.2 g/dl (3.5-5.0); Albumin/Globulin Ratio 1.5 (1.1-1.8); Alkaline Phosphatase 70 U/L (38-126); Anion Gap 11.3 mEq/L (5-15); Aspartate Amino Transferase 29 U/L (17-59); Bilirubin,Total 0.6 mg/dl (0.2-1.3); Blood Urea Nitrogen 20 mg/dl (9-20); Calcium 8.6 mg/dl (8.4-10.2); Carbon Dioxide 25 mmol/L (22.0-30.0); Chloride 104 mmol/L (98-107); Estimated Glomerular Filt Rate 100 ml/min (>60); GFR (African American) 121 ML/MIN (>60); Globulin 2.8 g/dL (1.3-3.2); Glucose 91 mg/dl (74-100); Potassium 4.3 mmoL/L (3.5-5.1); Sodium 136 mmol/L (136-145)
[2022-12-06 10:45] LABS: C-Reactive Protein 3.2 mg/L (0-4)
== END ==
PROVIDERS: PCP Physician Assistant; Visit Provider Nurse Practitioner Family
DX: D84.821 Immunodeficiency due to drugs (principal); G40.909 Epilepsy, unspecified, not intractable, without status epilepticus; K21.9 Gastro-esophageal reflux disease without esophagitis; M06.9 Rheumatoid arthritis, unspecified; R53.83 Other fatigue
CPT/HCPCS: 36415; 80053; 85025; 86140

== ENCOUNTER 2023-01-14 19:07 | Emergency (ER) | payer OTHER, SELFPAY ==
[2023-01-14 19:07] VITALS: BP 138/94; PULSE 90; RESP 16; TEMP 36.5; O2SAT 98; BMI 28.8
--- NOTE | 2023-01-14 19:22 | PC.NURSE ---
patients daughters allowed to come back to the room
[2023-01-14 19:30] VITALS: BP 146/89; PULSE 83; O2SAT 95
[2023-01-14 20:00] VITALS: BP 134/83; PULSE 71; O2SAT 93
--- NOTE | 2023-01-14 20:08 | HMH.EDANIB ---
Discharge Plan Disposition Patient Disposition: Home, Self-Care Condition: Good Prescriptions Prescriptions: New amoxicillin-pot clavulanate [Augmentin] 500-125 mg tablet 1 tab PO Q12H Qty: 20 0RF No Action folic acid 1 mg tablet 3 mg PO DAILY celecoxib 200 mg capsule 200 mg PO DAILY Label Comments: TAKE 1 CAPSULE BY MOUTH ONCE DAILY methotrexate sodium 2.5 mg tablet 2.5 mg PO DAILY prednisone 5 mg tablet 5 mg PO DAILY valacyclovir [Valtrex] 1 gram tablet 1,000 mg PO BID Qty: 60 2RF levetiracetam 1,000 mg tablet 1,000 mg PO BID Qty: 180 3RF cholecalciferol (vitamin D3) 25 mcg (1,000 unit) capsule See Rx Instructions .ROUTE .COMPLEX Qty: 30 0RF Dose Instruction: TAKE ONE CAPSULE BY MOUTH EVERY DAY Rx Instructions: TAKE ONE CAPSULE BY MOUTH EVERY DAY ergocalciferol (vitamin D2) 1,250 mcg (50,000 unit) capsule See Rx Instructions .ROUTE .COMPLEX Qty: 16 0RF Dose Instruction: TAKE ONE CAPSULE BY MOUTH ONCE a WEEK Rx Instructions: TAKE ONE CAPSULE BY MOUTH ONCE a WEEK omeprazole 40 mg capsule,delayed release(DR/EC) See Rx Instructions .ROUTE .COMPLEX Qty: 60 0RF Dose Instruction: TAKE ONE CAPSULE BY MOUTH EVERY DAY Rx Instructions: TAKE ONE CAPSULE BY MOUTH EVERY DAY Referrals Follow up/Referrals: Yasmin Kenyon PA [Primary Care Provider] - See instructions Instructions Patient Instructions: Animal Bites Discharge ED Provider: Kurt Washburn Animal Bite HPI General Chief Complaint: Animal Bite Stated Complaint: dog bite Time Seen by Provider: 01/14/23 20:18 Mode of Arrival: Wheelchair Source of Information: Patient Limitations: No Limitations Description of Symptoms (Recalled from ER Triage Doc. by RN): pt states his dogs got into a fight and he stepped in to seperate them. pt has laceraction to lt leg History of Present Illness HPI narrative: patient with multiple lacerations to L leg after dog bite. He own the dogs, they are UTD on their shots. They were fighting and he broke them up. Denies any injuries other than to his leg. Related Data Patient tetanus UTD: No Home Medications Medication Instructions Recorded Confirmed celecoxib 200 mg capsule 200 mg PO DAILY 12/08/21 12/08/21 folic acid 1 mg tablet 3 mg PO DAILY 12/08/21 12/08/21 methotrexate sodium 2.5 mg tablet 2.5 mg PO DAILY 12/08/21 12/08/21 prednisone 5 mg tablet 5 mg PO DAILY 12/08/21 12/08/21 Previous Rx's Medication Instructions Recorded valacyclovir 1 gram tablet 1,000 mg PO BID #60 tabs 06/08/22 (Valtrex) levetiracetam 1,000 mg tablet 1,000 mg PO BID seizures #180 tabs 11/22/22 cholecalciferol (vitamin D3) 25 See Rx Instructions .Route 12/22/22 mcg (1,000 unit) capsule .COMPLEX #30 ea ergocalciferol (vitamin D2) 1,250 See Rx Instructions .Route 01/05/23 mcg (50,000 unit) capsule .COMPLEX #16 caps omeprazole 40 mg capsule,delayed See Rx Instructions .Route 01/05/23 release .COMPLEX #60 caps amoxicillin 500 mg-potassium 1 tab PO Q12H #20 tabs 01/14/23 clavulanate 125 mg tablet (Augmentin) Allergies Allergy/AdvReac Type Severity Reaction Status Date / Time No Known Allergies Allergy Verified 12/08/21 13:15 [facility] Disclaimer: The information contained in this section may have been updated after the patient was seen, as this information can be updated by other users. 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
[2023-01-14 20:30] VITALS: BP 131/92; PULSE 67; O2SAT 94
[2023-01-14 20:50] VITALS: BP 131/92; PULSE 84; RESP 16; TEMP 36.7; O2SAT 99
== END 2023-01-14 20:55 | disposition home or self-care (01) ==
PROVIDERS: Emergency Provider Emergency Medicine; PCP Physician Assistant
DX: S81.812A Laceration without foreign body, left lower leg, initial encounter (principal); W54.0XXA Bitten by dog, initial encounter; Z23 Encounter for immunization
CPT/HCPCS: 12004; 90471; 90714; 96372; 99283; 99284

== ENCOUNTER 2023-01-20 16:06 | Outpatient (RCR) | payer OTHER, SELFPAY ==
--- NOTE | 2023-01-20 16:39 | HMH.PTOPWND ---
Rehab Outpt Wound Evaluation Rehab OP Wound Evaluation Start: 01/20/23 16:29 Freq: Status: Active Protocol: Document 01/20/23 16:30 RICHY (Rec: 01/20/23 16:38 PHORNE [id number]) E-signed By Thaddeus Warner, PT Subjective/History History History This is the initial PT eval for Devang Iraheta 57 yowm who presents with L anterior ruiz wound after dog bite ~ 1 wk ago. He reports no pain currently, but he did have pain in the area for the first 2 or 3 days. He has no difficulty with ambulation, no difficulty with R LE ROM, and no c/o tenderness to palpation. He has PMH of RA and epilepsy. Subjective Subjective Currently only localized 1+ pitting edema noted and mild yadiel-wound erythema noted. Unable to express any purulence from the wound bed and drainage currently appears serosanguineous. Minimal slough noted in the wound bed at this time. Wound cleansed with skintegrity wound cleanser and re-dressed. Wound culture swab taken after cleansing and sent to lab for analysis. Wound Eval Wound Left Lower Anterior Ruiz Wound Type dog bite Is This a Chronic Wound No Wound Length (cm) 2.1 Wound Width (cm) 3.3 Wound Depth (cm) 0.1 Number of Sutures 5 Wound Bed Appearance Beefy Red,Yellow Percentage Granulated (%) 90 Percentage of Slough (%) 10 Wound Margins Description Well Defined Surrounding Tissue Appearance Topaz,Bright Red,Shiny Edema Type Pitting Edema Degree 1+ Query Text:1+ Trace, Barely Detectable, Rebound 15-30 seconds 2+ Moderate, Slight Indentation, Rebound 10-20 seconds 3+ Deep, Deeper Indentation, Rebound > 30 seconds 4+ Very Deep, Rebound > 60 seconds Drainage Description Serosanguineous Drainage Amount Small Drainage Odor No Odor Wound Topical Solution/Irrigant Saline Irrigant Primary Dressing Silver Dressing Comme
== END 2023-01-20 16:10 | disposition home or self-care (01) ==
LOC: PT 16:06
PROVIDERS: Visit Provider Physician Assistant
DX: S81.802A Unspecified open wound, left lower leg, initial encounter (principal); W54.0XXA Bitten by dog, initial encounter
CPT/HCPCS: 87070; 87205; 97162

== ENCOUNTER 2023-02-08 18:58 | Emergency (ER) | payer OTHER, SELFPAY ==
[2023-02-08 18:59] VITALS: BP 136/88; PULSE 73; RESP 16; TEMP 36.7; O2SAT 94; BMI 28.8
[2023-02-08 19:08] VITALS: BMI 28.8
--- NOTE | 2023-02-08 19:09 | XR_ITS ---
PROCEDURE INFORMATION: Exam: XR Left Wrist Exam date and time: 02/08/2023 7:18 PM Age: 57 years old Clinical indication: Injury or trauma; Other: Crushing; Wrist; Left; Additional info: Swelling, crush from tractor bucket TECHNIQUE: Imaging protocol: Radiologic exam of the left wrist. Views: 3 or more views. COMPARISON: No relevant prior studies available. FINDINGS: Bones/joints: Moderate to moderately severe degenerative changes scaphoid multangular joint. Moderate degenerative changes of radiocarpal joint. Normal bony density. Cortices intact. Soft tissues: Normal. IMPRESSION: Degenerative changes without acute radiographic findings identified.
--- NOTE | 2023-02-08 19:11 | PC.NURSE ---
ice pack applied to L wrist area, LUE propped on pillow.
--- NOTE | 2023-02-08 19:16 | PC.NURSE ---
ER MD to BS to evaluate pt r/t open area over crush type area in case pt may need antibiotics. Pt refusing antibiotics at this time per ER MD r/t has RA and will make him miss his dose of RA medication, pt wants to wait unless necessary.
--- NOTE | 2023-02-08 19:21 | PC.NURSE ---
shift change reports given to shitalrn
--- NOTE | 2023-02-08 20:09 | HMH.EDGENADL ---
Discharge Plan Disposition Patient Disposition: Home, Self-Care Condition: Good Prescriptions Prescriptions: No Action folic acid 1 mg tablet 3 mg PO DAILY celecoxib 200 mg capsule 200 mg PO DAILY Label Comments: TAKE 1 CAPSULE BY MOUTH ONCE DAILY doxycycline hyclate 100 mg tablet 100 mg PO BID Qty: 20 0RF clindamycin HCl 300 mg capsule 300 mg PO TID Qty: 30 0RF valacyclovir [Valtrex] 1 gram tablet 1,000 mg PO BID Qty: 60 2RF levetiracetam 1,000 mg tablet 1,000 mg PO BID Qty: 180 3RF omeprazole 40 mg capsule,delayed release(DR/EC) See Rx Instructions .ROUTE .COMPLEX Rx Instructions: TAKE ONE CAPSULE BY MOUTH EVERY DAY ergocalciferol (vitamin D2) 1,250 mcg (50,000 unit) capsule See Rx Instructions .ROUTE .COMPLEX Rx Instructions: TAKE ONE CAPSULE BY MOUTH ONCE a WEEK cholecalciferol (vitamin D3) 25 mcg (1,000 unit) capsule See Rx Instructions .ROUTE .COMPLEX Rx Instructions: TAKE ONE CAPSULE BY MOUTH EVERY DAY methotrexate sodium 2.5 mg tablet 15 mg PO WEEKLY Referrals Follow up/Referrals: Yasmin Kenyon PA [Primary Care Provider] - See instructions Activity Restrictions/Add. Instructions Additional Instructions/Restrictions: Irrigate the wound once or twice daily with cool running water and apply antibiotic ointment and a nonadhesive dressing. Return for increasing redness, pus drainage or other signs of infection. Keep the arm elevated to minimize swelling and apply ice as needed for discomfort. Clinical Impressions Clinical Impression: Laceration of left wrist, Contusion of left wrist Discharge ED Provider: Contreras Long General Adult HPI General Chief complaint: Extremity Injury, Upper Stated complaint: AO05/30@[id number] LT arm inj Time Seen by Provider: 02/08/23 19:49 Mode of Arrival: Ambulatory Source of Information: Patient Limitations: No Limitations Description of Symptoms (Recalled from ER Triage Doc. by RN): Swelling and open area noted to L wrist area. Pt reports a large feed trougth and tractor bucket hit pt wrist, states arm was pinned under bucket of tractor. Radial pulses +. History of Present Illness HPI narrative: Patient presents with an injury to the left wrist sustained earlier today when the wrist became trapped between a feed trough and a tractor bucket. He denies additional injuries he denies associated neurological symptoms such as numbness or weakness to the affected extremity. Related Data Home Medications Medication Instructions Recorded Confirmed celecoxib 200 mg capsule 200 mg PO DAILY 12/08/21 01/24/23 folic acid 1 mg tablet 3 mg PO DAILY Supplement 12/08/21 02/08/23 cholecalciferol (vitamin D3) 25 See Rx Instructions .Route 02/08/23 02/08/23 mcg (1,000 unit) capsule .COMPLEX Supplement ergocalciferol (vitamin D2) 1,250 See Rx Instructions .Route 02/08/23 02/08/23 mcg (50,000 unit) capsule .COMPLEX Supplement methotrexate sodium 2.5 mg tablet 15 mg PO WEEKLY Rheumatoid 02/08/23 02/08/23 arthritis omeprazole 40 mg capsule,delayed See Rx Instructions .Route 02/08/23 02/08/23 release .COMPLEX stomach Previous Rx's Medication Instructions Recorded valacyclovir 1 gram tablet 1,000 mg PO BID #60 tabs 06/08/22 (Valtrex) levetiracetam 1,000 mg tablet 1,000 mg PO BID seizures #180 tabs 11/22/22 clindamycin HCl 300 mg capsule 300 mg PO TID #30 caps 01/18/23 doxycycline hyclate 100 mg tablet 100 mg PO BID #20 tabs 01/18/23 Allergies Allergy/AdvReac Type Severity Reaction Status Date / Time No Known Allergies Allergy Verified 01/24/23 10:30 [facility] Disclaimer: The information contained in this section may have been updated after the patient was seen, as this information can be updated by other users. Medical History Gastroesophageal reflux disease History of basal cell carcinoma Rheumatoid arthritis Dr Romero
[2023-02-08 20:16] VITALS: BP 132/84; PULSE 76; RESP 18; TEMP 36.8
== END 2023-02-08 20:20 | disposition home or self-care (01) ==
PROVIDERS: Emergency Provider Emergency Medicine; PCP Physician Assistant
DX: S61.512A Laceration without foreign body of left wrist, initial encounter (principal); W23.2XXA Caught, crushed, jammed or pinched between a moving and stationary object, initial encounter
CPT/HCPCS: 73110; 96374; 99284

== ENCOUNTER → 2023-03-14 12:21 | Outpatient (CLI) | payer OTHER, SELFPAY ==
[2023-03-14 12:35] LABS: Basophils # 0.1 K/mm3 (0-0.2); Basophils % 0.7 % (0.1-2.0); Eosinophils # 0.3 K/mm3 (0.0-0.4); Eosinophils % 2.5 % (0.1-12.0); Hematocrit 47.4 % (42.0-52.0); Hemoglobin 15.2 g/dL (14.1-18.0); Lymphocytes # 3.9 K/mm3 (0.7-4.5); Lymphocytes % 35.5 % (10-50); Mean Corpuscular Hemoglobin 29.5 pg (27.0-31.2); Mean Corpuscular Volume 92.2 fl (80-94); Mean Platelet Volume 7.8 fl (7.4-10.4); Monocytes # 0.6 K/mm3 (0.1-1.0); Monocytes % 5.6 % (1.7-9.3); Neutrophils # 6.1 K/mm3 (1.8-7.8); Neutrophils % 55.8 % (37.0-80.0); Platelet Count 221 K/mm3 (142-424); Red Blood Count 5.14 M/mm3 (4.60-6.20); Red Cell Distribution Width 14.5 % (11.5-17.5); White Blood Count 10.9 K/mm3 (4.8-10.8)
[2023-03-14 13:00] LABS: Alanine Aminotransferase 42 U/L (12-78); Albumin Level 4.3 g/dl (3.5-5.0); Albumin/Globulin Ratio 1.4 (1.1-1.8); Alkaline Phosphatase 92 U/L (38-126); Anion Gap 14.5 mEq/L (5-15); Aspartate Amino Transferase 33 U/L (17-59); Bilirubin,Total 0.6 mg/dl (0.2-1.3); Blood Urea Nitrogen 23 mg/dl (9-20); Calcium 8.8 mg/dl (8.4-10.2); Carbon Dioxide 23 mmol/L (22.0-30.0); Chloride 106 mmol/L (98-107); Estimated Glomerular Filt Rate 100 ml/min (>60); GFR (African American) 121 ML/MIN (>60); Globulin 3.1 g/dL (1.3-3.2); Glucose 97 mg/dl (74-100); Potassium 4.5 mmoL/L (3.5-5.1); Sodium 139 mmol/L (136-145); Total Protein,Serum 7.4 g/dl (6.3-8.2)
[2023-03-14 13:06] LABS: C-Reactive Protein 2.6 mg/L (0-4)
[2023-03-14 13:46] LABS: Erythrocyte Sedimentation Rate 9 mm/hr (0-20)
== END ==
PROVIDERS: PCP Physician Assistant; Visit Provider Nurse Practitioner Family
DX: D89.9 Disorder involving the immune mechanism, unspecified (principal); M06.9 Rheumatoid arthritis, unspecified; K21.9 Gastro-esophageal reflux disease without esophagitis; R53.83 Other fatigue; G40.909 Epilepsy, unspecified, not intractable, without status epilepticus
CPT/HCPCS: 36415; 80053; 85025; 85651; 86140

== ENCOUNTER → 2023-06-16 14:16 | Outpatient (CLI) | payer OTHER, SELFPAY ==
[2023-06-16 16:24] LABS: Basophils # 0.1 K/mm3 (0-0.2); Basophils % 0.8 % (0.1-2.0); Eosinophils # 0.3 K/mm3 (0.0-0.4); Eosinophils % 2.6 % (0.1-12.0); Hematocrit 48.4 % (42.0-52.0); Hemoglobin 15.6 g/dL (14.1-18.0); Lymphocytes # 4.4 K/mm3 (0.7-4.5); Lymphocytes % 41.6 % (10-50); Mean Corpuscular HGB Conc 32.1 g/dL (31.8-35.4); Mean Corpuscular Hemoglobin 30.5 pg (27.0-31.2); Mean Platelet Volume 8.6 fl (7.4-10.4); Monocytes # 0.6 K/mm3 (0.1-1.0); Monocytes % 5.9 % (1.7-9.3); Neutrophils # 5.2 K/mm3 (1.8-7.8); Neutrophils % 48.9 % (37.0-80.0); Platelet Count 251 K/mm3 (142-424); Red Cell Distribution Width 15.2 % (11.5-17.5); White Blood Count 10.6 K/mm3 (4.8-10.8)
[2023-06-16 16:59] LABS: Erythrocyte Sedimentation Rate 3 mm/hr (0-20)
[2023-06-16 17:48] LABS: Alanine Aminotransferase 41 U/L (12-78); Albumin Level 4.1 g/dl (3.5-5.0); Albumin/Globulin Ratio 1.2 (1.1-1.8); Alkaline Phosphatase 64 U/L (38-126); Anion Gap 11.4 mEq/L (5-15); Aspartate Amino Transferase 29 U/L (17-59); Bilirubin,Total 0.5 mg/dl (0.2-1.3); Blood Urea Nitrogen 17 mg/dl (9-20); Calcium 9.1 mg/dl (8.4-10.2); Carbon Dioxide 28 mmol/L (22.0-30.0); Chloride 107 mmol/L (98-107); Estimated Glomerular Filt Rate 100 ml/min (>60); GFR (African American) 121 ML/MIN (>60); Globulin 3.4 g/dL (1.3-3.2); Glucose 108 mg/dl (74-100); Potassium 4.4 mmoL/L (3.5-5.1); Sodium 142 mmol/L (136-145); Total Protein,Serum 7.5 g/dl (6.3-8.2)
[2023-06-18 09:55] LABS: C-Reactive Protein 1.2 mg/L (0-4)
== END ==
PROVIDERS: PCP Physician Assistant; Visit Provider Nurse Practitioner Family
DX: D89.9 Disorder involving the immune mechanism, unspecified (principal); G40.909 Epilepsy, unspecified, not intractable, without status epilepticus; K21.9 Gastro-esophageal reflux disease without esophagitis; M06.9 Rheumatoid arthritis, unspecified; R53.83 Other fatigue
CPT/HCPCS: 36415; 80053; 85025; 85651; 86140

== ENCOUNTER → 2023-07-28 09:51 | Outpatient (CLI) | payer OTHER, SELFPAY ==
[2023-07-28 10:42] LABS: Basophils # 0.1 K/mm3 (0-0.2); Basophils % 1.1 % (0.1-2.0); Eosinophils # 0.6 K/mm3 (0.0-0.4); Eosinophils % 6.6 % (0.1-12.0); Hematocrit 46.7 % (42.0-52.0); Hemoglobin 15.8 g/dL (14.1-18.0); Lymphocytes # 4.3 K/mm3 (0.7-4.5); Lymphocytes % 46.9 % (10-50); Mean Corpuscular HGB Conc 33.9 g/dL (31.8-35.4); Mean Corpuscular Hemoglobin 32.7 pg (27.0-31.2); Mean Corpuscular Volume 96.5 fl (80-94); Mean Platelet Volume 8.6 fl (7.4-10.4); Monocytes # 0.5 K/mm3 (0.1-1.0); Monocytes % 5.5 % (1.7-9.3); Neutrophils # 3.7 K/mm3 (1.8-7.8); Platelet Count 226 K/mm3 (142-424); Red Blood Count 4.84 M/mm3 (4.60-6.20); Red Cell Distribution Width 14.8 % (11.5-17.5); White Blood Count 9.2 K/mm3 (4.8-10.8)
[2023-07-28 11:11] LABS: Alanine Aminotransferase 47 U/L (12-78); Albumin Level 4.5 g/dl (3.5-5.0); Albumin/Globulin Ratio 1.4 (1.1-1.8); Alkaline Phosphatase 65 U/L (38-126); Anion Gap 14.4 mEq/L (5-15); Aspartate Amino Transferase 32 U/L (17-59); Bilirubin,Total 0.7 mg/dl (0.2-1.3); Blood Urea Nitrogen 16 mg/dl (9-20); Calcium 9.5 mg/dl (8.4-10.2); Carbon Dioxide 28 mmol/L (22.0-30.0); Chloride 100 mmol/L (98-107); Estimated Glomerular Filt Rate 117 ml/min (>60); GFR (African American) 141 ML/MIN (>60); Globulin 3.3 g/dL (1.3-3.2); Glucose 92 mg/dl (74-100); Potassium 4.4 mmoL/L (3.5-5.1); Sodium 138 mmol/L (136-145); Total Protein,Serum 7.8 g/dl (6.3-8.2)
[2023-07-28 11:14] LABS: Erythrocyte Sedimentation Rate 4 mm/hr (0-20)
== END ==
PROVIDERS: Nurse Practitioner Family; PCP Physician Assistant; Visit Provider Internal Medicine Rheumatology
DX: D84.821 Immunodeficiency due to drugs (principal); G40.909 Epilepsy, unspecified, not intractable, without status epilepticus; K21.9 Gastro-esophageal reflux disease without esophagitis; M06.9 Rheumatoid arthritis, unspecified; R53.83 Other fatigue
CPT/HCPCS: 36415; 80053; 85025; 85651; 86140

== ENCOUNTER 2023-09-27 11:37 | Outpatient (CLI) | payer OTHER, SELFPAY ==
[2023-09-27 12:03] LABS: Basophils # 0.1 K/mm3 (0-0.2); Basophils % 0.9 % (0.1-2.0); Eosinophils # 0.4 K/mm3 (0.0-0.4); Eosinophils % 4.3 % (0.1-12.0); Hematocrit 51.2 % (42.0-52.0); Hemoglobin 16.1 g/dL (14.1-18.0); Lymphocytes % 35.2 % (10-50); Mean Corpuscular HGB Conc 31.5 g/dL (31.8-35.4); Mean Corpuscular Hemoglobin 30.6 pg (27.0-31.2); Mean Corpuscular Volume 97.2 fl (80-94); Mean Platelet Volume 7.6 fl (7.4-10.4); Monocytes # 0.3 K/mm3 (0.1-1.0); Monocytes % 3.9 % (1.7-9.3); Neutrophils # 4.7 K/mm3 (1.8-7.8); Neutrophils % 55.7 % (37.0-80.0); Platelet Count 228 K/mm3 (142-424); Red Blood Count 5.27 M/mm3 (4.60-6.20); Red Cell Distribution Width 14.7 % (11.5-17.5); White Blood Count 8.4 K/mm3 (4.8-10.8)
[2023-09-27 12:21] LABS: Alanine Aminotransferase 52 U/L (12-78); Albumin Level 4.4 g/dl (3.5-5.0); Albumin/Globulin Ratio 1.5 (1.1-1.8); Alkaline Phosphatase 60 U/L (38-126); Anion Gap 12.1 mEq/L (5-15); Aspartate Amino Transferase 35 U/L (17-59); Bilirubin,Total 0.7 mg/dl (0.2-1.3); Blood Urea Nitrogen 16 mg/dl (9-20); Calcium 9.2 mg/dl (8.4-10.2); Carbon Dioxide 27 mmol/L (22.0-30.0); Chloride 104 mmol/L (98-107); Estimated Glomerular Filt Rate 100 ml/min (>60); GFR (African American) 121 ML/MIN (>60); Glucose 109 mg/dl (74-100); Potassium 4.1 mmoL/L (3.5-5.1); Sodium 139 mmol/L (136-145); Total Protein,Serum 7.4 g/dl (6.3-8.2)
[2023-09-27 12:26] LABS: C-Reactive Protein 1.3 mg/L (0-4)
[2023-09-27 12:44] LABS: Erythrocyte Sedimentation Rate 5 mm/hr (0-20)
== END 2023-09-27 23:59 ==
LOC: LAB 11:37
PROVIDERS: Nurse Practitioner Family; PCP Physician Assistant; Visit Provider Internal Medicine Rheumatology
DX: D89.9 Disorder involving the immune mechanism, unspecified (principal); G40.909 Epilepsy, unspecified, not intractable, without status epilepticus; K21.9 Gastro-esophageal reflux disease without esophagitis; M06.9 Rheumatoid arthritis, unspecified; R53.83 Other fatigue
CPT/HCPCS: 36415; 80053; 85025; 85651; 86140

== ENCOUNTER 2023-11-04 11:04 | Outpatient (CLI) | payer OTHER, SELFPAY ==
[2023-11-04 11:34] LABS: Basophils # 0.1 K/mm3 (0-0.2); Basophils % 0.7 % (0.1-2.0); Eosinophils # 0.3 K/mm3 (0.0-0.4); Eosinophils % 2.8 % (0.1-12.0); Hematocrit 46.6 % (42.0-52.0); Hemoglobin 15.5 g/dL (14.1-18.0); Lymphocytes # 4.3 K/mm3 (0.7-4.5); Mean Corpuscular HGB Conc 33.2 g/dL (31.8-35.4); Mean Corpuscular Hemoglobin 32.5 pg (27.0-31.2); Mean Corpuscular Volume 97.9 fl (80-94); Mean Platelet Volume 8.6 fl (7.4-10.4); Monocytes # 0.6 K/mm3 (0.1-1.0); Monocytes % 5.8 % (1.7-9.3); Neutrophils # 4.5 K/mm3 (1.8-7.8); Neutrophils % 46.6 % (37.0-80.0); Platelet Count 212 K/mm3 (142-424); Red Blood Count 4.77 M/mm3 (4.60-6.20); Red Cell Distribution Width 14.3 % (11.5-17.5); White Blood Count 9.7 K/mm3 (4.8-10.8)
[2023-11-04 11:56] LABS: Chloride 106 mmol/L (98-107); Potassium 4.3 mmoL/L (3.5-5.1); Sodium 137 mmol/L (136-145)
[2023-11-04 11:58] LABS: Alanine Aminotransferase 60 U/L (12-78); Alkaline Phosphatase 73 U/L (38-126); Aspartate Amino Transferase 34 U/L (17-59); Bilirubin,Total 0.6 mg/dl (0.2-1.3); Blood Urea Nitrogen 17 mg/dl (9-20); Estimated Glomerular Filt Rate 87 ml/min (>60); GFR (African American) 106 ML/MIN (>60)
[2023-11-04 11:59] LABS: Albumin Level 4.3 g/dl (3.5-5.0); Albumin/Globulin Ratio 1.4 (1.1-1.8); Anion Gap 7.3 mEq/L (5-15); Calcium 9.4 mg/dl (8.4-10.2); Carbon Dioxide 28 mmol/L (22.0-30.0); Glucose 95 mg/dl (74-100); Total Protein,Serum 7.3 g/dl (6.3-8.2)
[2023-11-04 12:07] LABS: C-Reactive Protein 2.2 mg/L (0-4)
[2023-11-04 13:33] LABS: Erythrocyte Sedimentation Rate 7 mm/hr (0-20)
[2023-11-05 06:33] LABS: HBsAg Screen Negative (Negative); HCV Ab Non Reactive (Non Reactive); Hep A Ab, IGM Negative (Negative); Hep B Core Ab, IgM Negative (Negative)
== END 2023-11-04 23:59 ==
LOC: LAB 11:05
PROVIDERS: PCP Physician Assistant; Visit Provider Nurse Practitioner Family
DX: D84.821 Immunodeficiency due to drugs (principal); M06.9 Rheumatoid arthritis, unspecified; R53.83 Other fatigue; Z51.81 Encounter for therapeutic drug level monitoring; Z79.899 Other long term (current) drug therapy
CPT/HCPCS: 36415; 80053; 80074; 85025; 85651; 86140

== ENCOUNTER 2023-11-08 18:39 | Outpatient (CLI) | payer OTHER, SELFPAY ==
[2023-11-08 19:26] LABS: Chol/HDL Ratio 4.2 (1-3.5); Cholesterol 250 mg/dl (140-200); HDL Cholesterol 59 mg/dl (40-60); Triglycerides 100 mg/dl (30-150); VLDL Cholesterol 20 mg/dL (0-40)
[2023-11-08 19:37] LABS: Direct LDL Cholesterol 130.61 mg/dL (100-129)
[2023-11-08 19:59] LABS: Prostate Specific Ag Screen 1.2 ng/ml (0.0-4.0); Thyroid Stimulating Hormone 0.84 uIU/mL (0.465-4.68)
== END 2023-11-08 23:59 ==
LOC: LAB.DROPOF 18:39
PROVIDERS: PCP Physician Assistant; Visit Provider Physician Assistant
DX: G40.909 Epilepsy, unspecified, not intractable, without status epilepticus (principal); Z12.5 Encounter for screening for malignant neoplasm of prostate; Z79.899 Other long term (current) drug therapy; Z51.81 Encounter for therapeutic drug level monitoring
CPT/HCPCS: 80061; 80177; 84443; G0103

== ENCOUNTER 2023-12-27 07:13 | Outpatient (CLI) | payer OTHER, SELFPAY ==
--- NOTE | 2023-12-27 07:13 | US_ITS ---
FINAL REPORT CLINICAL HISTORY: Right upper quad pain FINDINGS: RIGHT UPPER QUADRANT ULTRASOUND Sonographic images of the right upper quadrant were obtained. The pancreas is partially obscured. There is fatty infiltration of the liver. Gallstone is seen in the gallbladder. The common duct measures 4 mm. Limited images of the right kidney are normal. IMPRESSION: Fatty liver. Cholelithiasis. Reviewed, Interpreted and Dictated by Gino Piña MD Transcribed by Vianey Ttaum Authenticated and [facility]
== END 2023-12-27 23:59 | disposition home or self-care (01) ==
LOC: RAD 07:13
PROVIDERS: PCP Physician Assistant; Visit Provider Surgery
DX: R10.11 Right upper quadrant pain (principal)
CPT/HCPCS: 76705

== ENCOUNTER 2024-01-30 19:32 | Emergency (ER) | payer OTHER, SELFPAY ==
[2024-01-30 19:35] VITALS: BP 138/84; PULSE 67; RESP 16; TEMP 36.7; O2SAT 98; BMI 29.1
--- NOTE | 2024-01-30 19:44 | XR_ITS ---
PROCEDURE INFORMATION: Exam: XR Left Hand Exam date and time: 01/30/2024 7:45 PM Age: 58 years old Clinical indication: Injury or trauma; Fall; Blunt trauma (contusions or hematomas); Hand; Left; Additional info: Marita. Fall off step ladder TECHNIQUE: Imaging protocol: Radiologic exam of the left hand. Views: 3 or more views. COMPARISON: CR XR WRIST LT MIN 3V 01/30/2024 7:45 PM FINDINGS: Bones/joints: Partially visualized fracture of the distal radius and suspected small avulsion fracture of the tip of the ulnar styloid. No other acute fracture. No significant arthritic change. Soft tissues: Soft tissue swelling of the dorsum of the wrist. IMPRESSION: Fractures of the distal radius and ulnar styloid. No other acute fracture evident.
--- NOTE | 2024-01-30 19:44 | XR_ITS ---
PROCEDURE INFORMATION: Exam: XR Left Wrist Exam date and time: 01/30/2024 7:45 PM Age: 58 years old Clinical indication: Injury or trauma; Fall; Blunt trauma (contusions or hematomas); Wrist; Left; Additional info: Marita. Fall of ladder TECHNIQUE: Imaging protocol: Radiologic exam of the left wrist. Views: 3 or more views. COMPARISON: CR XR WRIST LT MIN 3V 02/08/2023 7:18 PM FINDINGS: Bones/joints: There is a slightly impacted mildly comminuted fracture of the distal radius which extends into the medial radiocarpal joint. Small calcification adjacent to the tip of the ulnar styloid suggesting small cortical/avulsion fracture. Carpal bones appear intact and normally aligned. Mild degenerative changes noted. Soft tissues: Moderate dorsal soft tissue swelling of the wrist. IMPRESSION: Intra-articular fracture of the distal radius and suspected small ulnar styloid fracture
--- NOTE | 2024-01-30 19:45 | PC.NURSE ---
Pt came in with an injury to his Left wrist. Pts wrist and hand is swelling. Wedding ring removed and given to in the room. CR
--- NOTE | 2024-01-30 19:46 | ED_ITS ---
Discharge Plan Disposition Patient Disposition: Home, Self-Care Prescriptions Prescriptions: New oxycodone 5 mg tablet 5 mg PO Q8H PRN (Reason: pain (scale score 7-10)) Qty: 6 0RF No Action folic acid 1 mg tablet 3 mg PO DAILY Enbrel SureClick 50 mg/mL (1 mL) pen injector 50 mg SQ WEEKLY Patient Comments: INJECT 1 ML SUBCUTANEOUSLY ONCE A WEEK valacyclovir [Valtrex] 1 gram tablet 1,000 mg PO BID Qty: 60 2RF ergocalciferol (vitamin D2) 1,250 mcg (50,000 unit) capsule See Rx Instructions .ROUTE .COMPLEX Qty: 16 0RF Dose Instruction: TAKE ONE CAPSULE BY MOUTH ONCE a WEEK Rx Instructions: TAKE ONE CAPSULE BY MOUTH ONCE a WEEK levetiracetam 1,000 mg tablet 1,000 mg PO BID Qty: 180 3RF omeprazole 40 mg capsule,delayed release(DR/EC) See Rx Instructions .ROUTE .COMPLEX Qty: 90 3RF Dose Instruction: TAKE ONE CAPSULE BY MOUTH EVERY DAY Rx Instructions: TAKE ONE CAPSULE BY MOUTH EVERY DAY cholecalciferol (vitamin D3) 25 mcg (1,000 unit) capsule See Rx Instructions .ROUTE .COMPLEX Qty: 30 0RF Dose Instruction: TAKE ONE CAPSULE BY MOUTH EVERY DAY Rx Instructions: TAKE ONE CAPSULE BY MOUTH EVERY DAY methotrexate sodium 2.5 mg tablet 15 mg PO WEEKLY Referrals Follow up/Referrals: Yasmin Kenyon PA [Primary Care Provider] - See instructions Samuel Michelle DO [Staff Physician] - See instructions Activity Restrictions/Add. Instructions Additional Instructions/Restrictions: At this time is felt you are safe to be discharged home. For pain please take Tylenol and ibuprofen every 8 hours. For breakthrough pain please take your oxycodone. Please call and schedule appoint with Dr. Michelle as soon as you are able. Clinical Impressions Clinical Impression: Distal radius fracture, left Discharge ED Provider: Farhad Wallis General Adult HPI General Chief complaint: Fall Stated complaint: AO 01/30/24 1830 Injury right arm Time Seen by Provider: 01/30/24 19:34 History of Present Illness HPI narrative: Patient is a 58-year-old male with no pertinent past medical history presents emergency department for evaluation of traumatic injury sustained in a fall. Patient was on a stepstool when he stepped down falling backwards onto his outstretched left hand. He has moderate to severe pain at his left wrist, no other acute traumatic complaints at this time. No anticoagulants. Related Data Home Medications Medication Instructions Recorded Confirmed folic acid 1 mg tablet 3 mg PO DAILY Supplement 12/08/21 12/22/23 methotrexate sodium 2.5 mg tablet 15 mg PO WEEKLY Rheumatoid 02/08/23 12/22/23 arthritis etanercept 50 mg/mL (1 mL) 50 mg SQ WEEKLY 11/08/23 12/22/23 subcutaneous pen injector (Enbrel SureClick) Previous Rx's Medication Instructions Recorded valacyclovir 1 gram tablet 1,000 mg PO BID #60 tabs 07/12/23 (Valtrex) ergocalciferol (vitamin D2) 1,250 See Rx Instructions .Route 09/08/23 mcg (50,000 unit) capsule .COMPLEX #16 caps levetiracetam 1,000 mg tablet 1,000 mg PO BID seizures #180 tabs 12/01/23 omeprazole 40 mg capsule,delayed See Rx Instructions .Route 12/08/23 release .COMPLEX #90 caps cholecalciferol (vitamin D3) 25 See Rx Instructions .Route 01/02/24 mcg (1,000 unit) capsule .COMPLEX #30 ea oxycodone 5 mg tablet 5 mg PO Q8H PRN pain (scale score 01/30/24 7-10) #6 tabs Allergies Allergy/AdvReac Type Severity Reaction Status Date / Time No Known Allergies Allergy Verified 12/22/23 08:52 [facility] Disclaimer: The information contained in this section may have been updated after the patient was seen, as this information can be updated by other users. 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 caffeine: Yes ROS Obtained: Yes Systems reviewed as appropriate & no additional complaints except as documented Physical Exam General General appearance: alert and in no apparent distress Head Head exam: atraumatic and normocephalic Eye Eye exam: Present PERRL ENT ENT exam: Present mucous membranes moist Neck Neck exam: Present normal inspection Chest Chest inspection: Present normal inspection and symmetric chest wall rise Respiratory Respiratory exam: Absent respiratory distress Cardiovascular Cardiovascular exam: Present regular rate and normal rhythm Abdominal Exam Abdominal exam: Present soft Extremities Exam Extremities exam: Present other (Swelling over the left wrist, tenderness over the left wrist, distally neurovascularly intact, nontender left elbow, palpable left radial pulse. Remainder of extremities are unremarkable.) Neurological Exam Neurological exam: Present alert Psychiatric Psychiatric exam: Present normal affect Skin Skin exam: Present warm and dry Medical Decision Making César Inquiry Pt receiving controlled substance: Yes César was queried for this patient: No Risks and benefits of using a controlled substance: were not discussed with pt by me Vital Signs: 01/30/24 19:35 Temperature 98.1 F Temperature Source Oral Pulse Rate [Left] 67 Respiratory Rate 16 Blood Pressure [Right Arm] 138/84 Blood Pressure Mean [Right Arm] 102 02 Sat by Pulse Oximetry 98 Orders (Tests/Meds): ED MEDICATIONS Discontinued Medications Generic Name Dose Route Start Last Admin Trade Name Joonq PRN Reason Stop Dose Admin Acetaminophen 1,000 mg 01/30/24 19:45 01/30/24 19:59 Acetaminophen 500mg Tab PO 01/30/24 19:46 1,000 mg ONCE ONE Administration Ibuprofen 600 mg 01/30/24 19:45 01/30/24 19:59 Ibuprofen 600 Mg Tablet PO 01/30/24 19:46 Not Given ONCE ONE Oxycodone HCl 5 mg 01/30/24 19:45 01/30/24 19:59 Oxycodone 5mg Immediate Release Tablet PO 01/30/24 19:46 5 mg ONCE ONE Administration ORDERS Category Date Time Status Hand XR left minimum 3 views [XR hand LT min 3V] Stat Exams 01/30/24 19:44 Taken Wrist XR left minimum 3 views [XR wrist LT min 3V] Stat Exams 01/30/24 19:44 Taken Medical Decision Narrative: In summary patient is a 58-year-old male with past medical history described above who presents emergency department for evaluation traumatic injury sustained in a fall on an outstretched hand. Patient is right-hand dominant, he fell on his left hand. Differential includes musculoskeletal strain, fracture, among others. Based on history and physical exam limited trauma survey will be conducted with plain film of the left wrist and hand. Initial interventions include Tylenol, ibuprofen, oxycodone. X-ray informally interpreted by me, fracture of the distal radius with intra-articular extension and ulnar styloid fracture. Patient was placed in a sugar-tong splint at bedside and is appropriate for discharge at this time. Patient will be discharged with a short course of oxycodone and will schedule follow-up with Dr. Michelle. Procedure: Procedure performed was hematoma block. Procedure performed by Farhad Wallis. Using lidocaine 1% with epinephrine 6 cc was infected into the hematoma about the distal radius. Patient tolerated the procedure with difficulty, significant anesthesia achieved. No immediate complications. Procedure: Procedure performed was sugar-tong splint. Procedure performed by ED staff supervised by Farhad Wallis. Patient was placed in sugar-tong of the left upper extremity with success. Post splint capillary refill preserved. Patient tolerated the procedure well. There were no immediate complications. Critical Care Critical Care Time Critical Care Time: No
[2024-01-30] MEDS: OXYCODONE 5MG IMMEDIATE RELEASE TABLET 5 MG PO (19:59)
[2024-01-30] MEDS: ACETAMINOPHEN 500MG TAB 1000 MG PO (19:59)
[2024-01-30 20:54] VITALS: BP 141/87; PULSE 65; RESP 18; TEMP 36.6; O2SAT 95
== END 2024-01-30 20:59 | disposition home or self-care (01) ==
PROVIDERS: Emergency Provider Emergency Medicine; PCP Physician Assistant
DX: S52.502A Unspecified fracture of the lower end of left radius, initial encounter for closed fracture (principal); M25.532 Pain in left wrist; W10.8XXA Fall (on) (from) other stairs and steps, initial encounter
CPT/HCPCS: 29125; 73110; 73130; 99283

== ENCOUNTER 2024-02-09 13:38 | Outpatient (CLI) | payer OTHER, SELFPAY ==
--- NOTE | 2024-02-09 13:42 | XR_ITS ---
FINAL REPORT CLINICAL HISTORY: left wrist fx FALL 1 WEEK AGO COMPARISON: 01/30/2024 FINDINGS: LEFT WRIST Three views demonstrate a comminuted fracture of the distal radial metaphysis with intra-articular extension. There has been interval placement of an overlying cast. The fracture is minimally impacted. The visualized joint spaces are normally aligned. The soft tissues are unremarkable. IMPRESSION: Comminuted fracture distal radial metaphysis with new overlying cast. Reviewed, Interpreted and Dictated by Gino Piña MD Transcribed by Val Rivas Authenticated and . [facility]
== END 2024-02-09 23:59 | disposition home or self-care (01) ==
LOC: RAD 13:38
PROVIDERS: PCP Physician Assistant; Visit Provider Physician Assistant Surgical
DX: M25.532 Pain in left wrist (principal); S52.502A Unspecified fracture of the lower end of left radius, initial encounter for closed fracture
CPT/HCPCS: 73110

== ENCOUNTER 2024-02-10 12:03 | Day surgery (SDC) | payer OTHER, SELFPAY ==
[2024-02-08 12:54] VITALS: BMI 29.1
[2024-02-10 12:22] VITALS: BP 121/87; PULSE 72; RESP 17; TEMP 36.1; O2SAT 98
[2024-02-10 13:30] VITALS: BP 137/78; PULSE 68; RESP 16; O2SAT 95
--- NOTE | 2024-02-10 13:35 | EXP.GEN.HP ---
HPI HPI HPI: Patient is a 58-year-old male referred by Yasmin Kenyon for EGD. I previously had seen him on 09/28/2019 for a small somewhat symptomatic umbilical hernia. Plan was made for open umbilical hernia repair but then this was unable to be performed due to the pandemic. He has a history apparently of Payne's esophagus with dysplasia. He had undergone multiple EGDs and had several episodes of radiofrequency ablation in [place]. Dr. Rogers performed his last EGD in January 2019. Biopsies at that time revealed no evidence of any dysplasia but he had intestinal metaplasia. Dr. Campbell had performed a colonoscopy on him on 11/21/2020 at which time he had a descending colon tubular adenoma. He recommended repeat colonoscopy in 7 to 10 years. Patient describes symptoms for very longstanding time of abdominal bloating and belching occurring postprandially. He has some discomfort. This usually occurs about 20 to 40 minutes postprandially. He has been on a Mediterranean diet lately and this has slightly improved his symptoms. He has never had gallbladder evaluation. He has not undergone umbilical hernia repair. Given his history of Payne's esophagus with intestinal metaplasia and previous dysplasia with radiofrequency ablation I do feel that EGD would be warranted. However, his symptoms sound potentially consistent with gallbladder. In the interim I ordered a gallbladder ultrasound. This reveals fatty liver and cholelithiasis. It is doubtful that the umbilical hernia is causing his symptoms but if gallbladder surgery is needed then concomitant umbilical hernia repair may be performed. Of course if he has any dysplasia on his upper endoscopy he will need referral to towel inspector for consideration of intervention. However, patient states that he had difficulty with systemic inflammatory response after the last time he had this done in his hesitant to proceed. . [facility] Disclaimer: The information contained in this section may have been updated after the patient was seen, as this information can be updated by other users. Medical History Payne esophagus History of basal cell carcinoma Gastroesophageal reflux disease Rheumatoid arthritis [facility] [phone] Seizure disorder Surgical History History of colonoscopy Family History (Updated 02/10/24 @ 12:20 by Mary Delacruz RN) Family history of cancer Family history of abdominal aortic aneurysm Social History Smoking Status: Never smoker alcohol intake: current alcohol intake frequency: holidays/special occasions only substance use type: denies use current occupational status: employed Travel in the last 8 weeks: [place] the [place] household members: spouse and family housing: house 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 caffeine: Yes Meds Home Medications and Allergies Home Medications Medication Instructions Recorded Confirmed Type folic acid 1 mg tablet 3 mg PO DAILY Supplement 12/08/21 02/10/24 History methotrexate sodium 2.5 mg tablet 15 mg PO WEEKLY Rheumatoid 02/08/23 02/10/24 History arthritis valacyclovir 1 gram tablet 1,000 mg PO BID #60 tabs 07/12/23 02/10/24 Rx (Valtrex) etanercept 50 mg/mL (1 mL) 50 mg SQ WEEKLY 11/08/23 02/10/24 History subcutaneous pen injector (Enbrel SureClick) levetiracetam 1,000 mg tablet 1,000 mg PO BID seizures #180 tabs 12/01/23 02/10/24 Rx omeprazole 40 mg capsule,delayed See Rx Instructions .Route 12/08/23 02/10/24 Rx release .COMPLEX #90 caps cholecalciferol (vitamin D3) 25 See Rx Instructions .Route 02/03/24 02/10/24 Rx mcg (1,000 unit) capsule .COMPLEX #30 ea ergocalciferol (vitamin D2) 1,250 See Rx Instructions .Route 02/03/24 02/10/24 Rx mcg (50,000 unit) capsule .COMPLEX #16 caps hydrocodone 5 mg-acetaminophen 325 1 tab PO Q4H PRN fracture pain #42 02/07/24 02/09/24 Rx mg tablet tabs New Prescriptions to Start Prescriptions: Allergies Allergy/AdvReac Type Severity Reaction Status Date / Time No Known Allergies Allergy Verified 02/10/24 12:20 Exam Data for Last 24 hours Vital signs and Labs for Last 24 Hours: Temp Pulse Resp BP Pulse Ox O2 Del Method 97.0 F L 72 17 121/87 98 Room Air 02/10/24 12:22 02/10/24 12:22 02/10/24 12:22 02/10/24 12:22 02/10/24 12:02/10/24 12:22 I & O for Last 24 hours: Intake & Output 02/08/24 02/09/24 02/10/24 02/11/24 11:59 11:59 11:59 11:59 Weight 215 lb Constitutional Constitutional: no acute distress *Routine HEENT Exam Head: Present normocephalic Eye: Present EOMI and PERRL ENT: Present mucous membranes moist *Routine Neck Exam Neck: Present supple; Absent lymphadenopathy *Routine Respiratory Exam Respiratory: Present CTA bilaterally *Routine Cardiovascular Exam Cardiovascular: Present RRR *Routine Abdominal Exam Abdominal: Present soft and normoactive bowel sounds; Absent tenderness *Routine Rectal Exam Rectal:: deferred *Routine Genitalia Exam Genitalia:: deferred *Routine Extremities Exam Extremities: Absent cyanosis, clubbing or edema *Routine Skin Exam Skin: Present warm; Absent rash *Routine Neurological Exam Neurological: Present alert and oriented X3 Additional Findings:: Plan to proceed with upper endoscopy. .
[2024-02-10 13:47] VITALS: O2SAT 99
--- NOTE | 2024-02-10 13:47 | P.PCN_ITS ---
Procedure: Date: 02/10/24 Patient Date of :: 1965 Procedure Performed:: Esophagogastroduodenoscopy with biopsies . Indications:: Patient is a 58-year-old male referred by Yasmin Kenyon for EGD. I previously had seen him on 09/28/2019 for a small somewhat symptomatic umbilical hernia. Plan was made for open umbilical hernia repair but then this was unable to be performed due to the pandemic. He has a history apparently of Payne's esophagus with dysplasia. He had undergone multiple EGDs and had several episodes of radiofrequency ablation in [place]. Dr. Thrasher performed his last EGD in January 2019. Biopsies at that time revealed no evidence of any dysplasia but he had intestinal metaplasia. Dr. Campbell had performed a colonoscopy on him on 11/21/2020 at which time he had a descending colon tubular adenoma. He recommended repeat colonoscopy in 7 to 10 years. Patient describes symptoms for very longstanding time of abdominal bloating and belching occurring postprandially. He has some discomfort. This usually occurs about 20 to 40 minutes postprandially. He has been on a Mediterranean diet lately and this has slightly improved his symptoms. He has not undergone umbilical hernia repair. Given his history of Payne's esophagus with intestinal metaplasia and previous dysplasia with radiofrequency ablation I do feel that EGD would be warranted. However, his symptoms sound potentially consistent with gallbladder. In the interim I ordered a gallbladder ultrasound. This reveals fatty liver and cholelithiasis. It is doubtful that the umbilical hernia is causing his symptoms but if gallbladder surgery is needed then concomitant umbilical hernia repair may be performed. Of course if he has any dysplasia on his upper endoscopy he will need referral to aboriginal ceremonial celebrant for consideration of intervention. However, patient states that he had difficulty with systemic inflammatory response after the last time he had this done in his hesitant to proceed. Performing Provider:: Peter Calderon MD Referring Provider:: Yasmin Kenyon Sedation:: MAC sedation Procedure:: Patient history was obtained and appropriate physical examination was performed. Patient's medications and allergies were reviewed. Informed consent was obtained after explaining the benefits, alternatives, and risks of the procedure including, but not limited to, bleeding, perforation, missed lesions, and a dverse reaction to anesthesia medications. Patient was transported to endoscopy procedure room. Patient was connected to monitoring devices. Throughout the procedure the patient's blood pressure, pulse, and oxygen saturations were monitored continuously. Patient identification and planned procedure were verified by the staff. Patient was positioned in lateral decubitus position. Olympus endoscope was inserted via the oropharynx. Esophagus was cannulated. Overall esophagus appeared relatively unremarkable. There were findings of possible focal Payne's esophagus at the distal esophagus between 36 and 38 cm from the incisors. Gastroesophageal junction was at approximately 38 cm. Stomach was cannulated and insufflated. Retroflexion revealed a moderate sliding hiatal hernia measuring about 4 to 5 cm. There was some diffuse gastropathy. Gastric antral mucosal biopsy was obtained. Pylorus was traversed. Duodenum appeared unremarkable. Endoscope was withdrawn into the distal esophagus. Several biopsies were obtained at the gastroesophageal junction. A few biopsies were obtained just proximal to this by less than a centimeter. Biopsies were obtained at 37 cm and at 36 cm. Stomach was desufflated and the endoscope was withdrawn. . Findings:: Gastroesophageal junction at 38 cm Possible Payne's esophagus between 36 and 38 cm Moderate 4 to 5 cm hiatal hernia Diffuse nonerosive gastropathy . Recommendations:: Patient does have gallstones. Some of his symptoms may be secondary to gallbladder. He does have a history of Payne's esophagus with previous radiofrequency ablation. He may benefit from possible hiatal hernia repair. Of course this is all pending biopsies. Potential exists for possible referral for combined hiatal hernia and laparoscopic cholecystectomy. . Complications:: None immediately apparent Estimated blood obtained (mL): 4 Colonoscopy Component Colonoscopy Component Was a colonoscopy performed during today's procedure?: No
[2024-02-10 14:08] VITALS: BP 122/68; PULSE 63; RESP 16; TEMP 36.6; O2SAT 94
--- NOTE | 2024-02-10 14:11 | EXP.ANES.CKL ---
[facility] Disclaimer: The information contained in this section may have been updated after the patient was seen, as this information can be updated by other users. Medical History Payne esophagus History of basal cell carcinoma Gastroesophageal reflux disease Rheumatoid arthritis [facility] [phone] Seizure disorder Surgical History History of colonoscopy Family History (Updated 02/10/24 @ 12:20 by Mary Delacruz RN) Other Family history of abdominal aortic aneurysm Family history of cancer Social History Smoking Status: Never smoker alcohol intake: current alcohol intake frequency: holidays/special occasions only substance use type: denies use current occupational status: employed Travel in the last 8 weeks: Inside the [place] household members: spouse and family housing: house 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 caffeine: Yes [facility] Anesthesia Checklist Patient Identification Patient Identification: Arm Band Structural Data Admitted From: Home Planned Operative Procedure/s: EGD Consent for Planned Operative Procedure(s) Verified: Yes Verified Documents: Surgical Consent and History and Physical NPO Status Verified Time NPO: 00:00 Additional verifications Anesthesia Reactions: No Airway Assessment Mallampati Score:: Class II C-Spine Mobility Assessed: Yes TMJ Mobility Assessed: Yes Dentition: Good Dentition Neurological Assessment Level of Consciousness: Awake, Alert and Appropriate Anesthesia Plan Anesthesia Risk discussed: Yes Anesthesia Plan: Verified ASA Class: III Anesthesia Type: MAC
[2024-02-10 14:18] VITALS: BP 117/59; PULSE 63; RESP 16; O2SAT 93
[2024-02-10 14:26] VITALS: BP 142/61; PULSE 67; RESP 16; O2SAT 93
== END 2024-02-10 14:30 | disposition home or self-care (01) ==
PROVIDERS: PCP Physician Assistant; Visit Provider Surgery
PROC: 0DJ08ZZ Inspection of Upper Intestinal Tract, Via Natural or Artificial Opening Endoscopic (ICD-10-PCS; CPT 43235; principal; 2024-02-10 13:00)
DX: R14.0 Abdominal distension (gaseous) (principal); K22.719 Barrett's esophagus with dysplasia, unspecified; K42.9 Umbilical hernia without obstruction or gangrene
CPT/HCPCS: 43239

== ENCOUNTER 2024-02-14 08:57 | Outpatient (CLI) | payer OTHER, SELFPAY ==
--- NOTE | 2024-02-14 09:02 | XR_ITS ---
FINAL REPORT CLINICAL HISTORY: left wrist fx COMPARISON: 02/09/2024 FINDINGS: LEFT WRIST Three views demonstrate cast overlying some of the detail. There is a nondisplaced mildly impacted fracture of the distal radius. The bony alignment is normal. There is no significant callus formation. Mild degenerative changes are noted at the wrist. There is no acute soft tissue abnormality. IMPRESSION: Distal radius fracture as above without significant callus formation. Reviewed, Interpreted and Dictated by Peter Rizzo III, MD Transcribed by Val Rivas Authenticated and . [facility]
[2024-02-14 10:17] LABS: Basophils # 0.1 K/mm3 (0-0.2); Basophils % 1.4 % (0.1-2.0); Eosinophils # 0.3 K/mm3 (0.0-0.4); Eosinophils % 3.2 % (0.1-12.0); Hematocrit 50.4 % (42.0-52.0); Hemoglobin 16.2 g/dL (14.1-18.0); Lymphocytes # 4.3 K/mm3 (0.7-4.5); Lymphocytes % 51.6 % (10-50); Mean Corpuscular HGB Conc 32.1 g/dL (31.8-35.4); Mean Corpuscular Hemoglobin 31.2 pg (27.0-31.2); Mean Corpuscular Volume 97.1 fl (80-94); Mean Platelet Volume 8.1 fl (7.4-10.4); Monocytes # 0.5 K/mm3 (0.1-1.0); Monocytes % 5.4 % (1.7-9.3); Neutrophils # 3.2 K/mm3 (1.8-7.8); Neutrophils % 38.4 % (37.0-80.0); Platelet Count 225 K/mm3 (142-424); Red Cell Distribution Width 14.2 % (11.5-17.5); White Blood Count 8.4 K/mm3 (4.8-10.8)
[2024-02-14 10:28] LABS: MANUAL DIFFERENTIAL MANUAL DIFFERENTIAL (MANUAL DIFF)
[2024-02-14 10:46] LABS: Erythrocyte Sedimentation Rate 13 mm/hr (0-20)
[2024-02-14 11:58] LABS: Alanine Aminotransferase 42 U/L (12-78); Albumin Level 4.6 g/dl (3.5-5.0); Albumin/Globulin Ratio 1.4 (1.1-1.8); Alkaline Phosphatase 82 U/L (38-126); Anion Gap 16.5 mEq/L (5-15); Aspartate Amino Transferase 33 U/L (17-59); Bilirubin,Total 0.7 mg/dl (0.2-1.3); Blood Urea Nitrogen 23 mg/dl (9-20); Calcium 9.9 mg/dl (8.4-10.2); Carbon Dioxide 23 mmol/L (22.0-30.0); Chloride 103 mmol/L (98-107); Estimated Glomerular Filt Rate 100 ml/min (>60); GFR (African American) 121 ML/MIN (>60); Globulin 3.4 g/dL (1.3-3.2); Glucose 101 mg/dl (74-100); Potassium 4.5 mmoL/L (3.5-5.1); Sodium 138 mmol/L (136-145)
[2024-02-14 12:03] LABS: C-Reactive Protein 3.3 mg/L (0-4)
[2024-02-14 12:39] LABS: Eosinophils % 6 % (0-3); Lymphocytes % 38 % (10-50); Monocytes % 5 % (2-9); Neutrophils % 38 % (42-76); Total Cells Counted 100
[2024-02-14 12:43] LABS: Platelet Estimate Normal; RBC Morphology Normal
== END 2024-02-14 23:59 | disposition home or self-care (01) ==
LOC: RAD 08:57
PROVIDERS: PCP Physician Assistant; Visit Provider Orthopaedic Surgery
DX: M25.532 Pain in left wrist (principal); S52.502A Unspecified fracture of the lower end of left radius, initial encounter for closed fracture
CPT/HCPCS: 36415; 73110; 80053; 85007; 85025; 85027; 85651; 86140

== ENCOUNTER 2024-03-01 12:53 | Outpatient (CLI) | payer OTHER, SELFPAY ==
--- NOTE | 2024-03-01 12:58 | XR_ITS ---
FINAL REPORT CLINICAL HISTORY: left wrist fx COMPARISON: 02/14/2024 FINDINGS: Three views show sclerosis of the radial epiphysis compatible with fracture healing. There is no significant displacement. There is a small fracture fragment at the ulnar styloid process. IMPRESSION: Healing distal radius fracture. Reviewed, Interpreted and Dictated by Asuncion Crabtree MD Transcribed by Vianey Tatum Authenticated and . [facility]
== END 2024-03-01 23:59 | disposition home or self-care (01) ==
LOC: RAD 12:54
PROVIDERS: PCP Physician Assistant; Visit Provider Physician Assistant Surgical
DX: M25.532 Pain in left wrist (principal); S52.502A Unspecified fracture of the lower end of left radius, initial encounter for closed fracture
CPT/HCPCS: 73110

== ENCOUNTER 2024-03-21 07:22 | Outpatient (CLI) | payer OTHER, SELFPAY ==
[2024-03-22 19:15] LABS: H. pylori Stool Ag, EIA Negative (Negative)
== END 2024-03-21 23:59 | disposition home or self-care (01) ==
LOC: LAB.DROPOF 07:22
PROVIDERS: PCP Physician Assistant; Visit Provider Surgery
DX: A04.8 Other specified bacterial intestinal infections (principal)
CPT/HCPCS: 87338

== ENCOUNTER 2024-03-22 12:26 | Outpatient (CLI) | payer OTHER, SELFPAY ==
--- NOTE | 2024-03-22 12:40 | XR_ITS ---
FINAL REPORT CLINICAL HISTORY: Lt Wrist pain fracture f/u. no surgery. COMPARISON: 03/01/2024 FINDINGS: LEFT WRIST Three views demonstrate no acute fracture or dislocation. There is a subacute fracture of the distal radial metaphysis, with stable alignment when compared to the prior film of March 01. There is evident healing at the fracture site. No new bony abnormalities are identified. The visualized joint spaces are normally aligned. The soft tissues are unremarkable. IMPRESSION: Subacute fracture of the distal radial metaphysis, with stable alignment and evident healing. Reviewed, Interpreted and Dictated by Peter Rizzo III, MD Transcribed by Leatha Ma Authenticated and '[facility]
== END 2024-03-22 23:59 | disposition home or self-care (01) ==
LOC: RAD 12:26
PROVIDERS: PCP Physician Assistant; Visit Provider Orthopaedic Surgery
DX: M25.532 Pain in left wrist (principal); S52.502A Unspecified fracture of the lower end of left radius, initial encounter for closed fracture
CPT/HCPCS: 73110

== ENCOUNTER 2024-07-23 07:43 | Outpatient (CLI) | payer OTHER, SELFPAY ==
--- NOTE | 2024-07-23 07:54 | FL_ITS ---
FINAL REPORT CLINICAL HISTORY: HIATAL HERNIA ft 1:19 dap 1563.03 uGym2 FINDINGS: AIR CONTRAST UPPER GI HISTORY: Bloating, getting full easily, hiatal hernia. TECHNIQUE: The patient ingested thick and thin barium contrast. Effervescent crystals were also administered. Spot and overhead films were performed. A total of 30 images were saved. FINDINGS: The esophagus demonstrates no morphologic abnormalities. No mucosal defects are seen and motility appears normal. The stomach is of normal size, shape and position. No gastric filling defects are seen. The duodenal bulb and sweep appear unremarkable. There is gastroesophageal reflux to the thoracic inlet. 13 mm barium tablet passes easily through the esophagus and into the stomach. FLUROSCOPY TIME: 1 minute, 19 seconds Radiation exposure in Total DAP: 1563.03 uGym2 IMPRESSION: Gastroesophageal reflux. Otherwise, unremarkable upper GI. Reviewed, Interpreted and Dictated by Peter Rizzo III, MD Transcribed by Eileen Cabral PA-C Authenticated and [facility]
[2024-07-23] MEDS: BARIUM SULFATE (E-Z-HD 340GM);135ML BOTTLE 135 ML PO (08:24)
[2024-07-23] MEDS: BARIUM SULFATE(LIQUID E-Z-PAQUE);355ML BOTTLE 355 ML PO (08:24)
[2024-07-23] MEDS: E-Z-GASII EFFERVESCENT GRANULES;1PK 1 EACH PO (08:24)
== END 2024-07-23 23:59 | disposition home or self-care (01) ==
LOC: RAD 07:43
PROVIDERS: PCP Physician Assistant; Visit Provider Nurse Practitioner Family
DX: K44.9 Diaphragmatic hernia without obstruction or gangrene (principal)
CPT/HCPCS: 74246

== ENCOUNTER 2024-08-22 09:52 | Outpatient (CLI) | payer OTHER, SELFPAY ==
--- NOTE | 2024-08-22 10:07 | NM_ITS ---
FINAL REPORT TECHNIQUE: 0.52 millicuries of technetium 99m sulfur colloid was ingested with 2 whole eggs, 2 piece toast and 1 cup water. CLINICAL HISTORY: HIATAL HERNIA FINDINGS: GASTRIC EMPTYING SCAN Static images show normal emptying of the stomach into the small bowel. Based on the time activity curve, the estimated half-emptying time is 97 minutes. IMPRESSION: Normal gastric emptying study. Reviewed, Interpreted and Dictated by Peter Rizzo III, MD Transcribed by Vianey Tatum Authenticated and '[facility]
[2024-08-22] MEDS: TC99M SULF.COLLOID;1 DOSE (UP TO 20 MCI) IV (10:29)
[2024-08-23 10:10] LABS: HBsAg Screen Negative (Negative); HCV Ab Non Reactive (Non Reactive); Hep A Ab, IGM Negative (Negative); Hep B Core Ab, IgM Negative (Negative)
== END 2024-08-22 23:59 | disposition home or self-care (01) ==
PROVIDERS: Nurse Practitioner Family; PCP Physician Assistant; Visit Provider Nurse Practitioner Family
DX: K44.9 Diaphragmatic hernia without obstruction or gangrene (principal); R14.0 Abdominal distension (gaseous); D84.821 Immunodeficiency due to drugs; M06.9 Rheumatoid arthritis, unspecified; R53.83 Other fatigue; Z51.81 Encounter for therapeutic drug level monitoring; Z79.899 Other long term (current) drug therapy
CPT/HCPCS: 36415; 78264; 80074; A9541

== ENCOUNTER 2024-09-28 12:27 | Outpatient (CLI) | payer OTHER, SELFPAY ==
--- NOTE | 2024-09-28 12:30 | XR_ITS ---
FINAL REPORT TECHNIQUE: 1 view CLINICAL HISTORY: Assessment of fecal burden COMPARISON: None FINDINGS: Examination shows moderate fecal impaction in the right colon and mild fecal impaction in the transverse colon. The remaining colon is unremarkable. There is no small bowel dilatation. There are pelvic calcifications compatible with phleboliths. No obvious free air is noted. IMPRESSION: Fecal impaction of the proximal colon. Reviewed, Interpreted and Dictated by Asuncion Crabtree MD Transcribed by Minda Hernandez Authenticated and [facility]
== END 2024-09-28 23:59 | disposition home or self-care (01) ==
LOC: RAD 12:28
PROVIDERS: PCP Physician Assistant; Visit Provider Internal Medicine Gastroenterology
DX: R14.0 Abdominal distension (gaseous) (principal); K59.00 Constipation, unspecified
CPT/HCPCS: 74018

== ENCOUNTER 2024-10-01 07:49 | Outpatient (CLI) | payer OTHER, SELFPAY ==
[2024-10-03 07:17] LABS: Pancreatic Elastase, Fecal >800 (>200)
== END 2024-10-01 23:59 | disposition home or self-care (01) ==
LOC: LAB 07:50
PROVIDERS: PCP Physician Assistant; Visit Provider Internal Medicine Gastroenterology
DX: K59.00 Constipation, unspecified (principal); R14.0 Abdominal distension (gaseous)
CPT/HCPCS: 82656

== ENCOUNTER 2024-12-10 11:46 | Outpatient (CLI) | payer OTHER, SELFPAY ==
[2024-12-10 11:54] LABS: MANUAL DIFFERENTIAL MANUAL DIFFERENTIAL (MANUAL DIFF)
[2024-12-10 12:13] LABS: Basophils # 0.1 K/mm3 (0-0.2); Eosinophils # 0.2 K/mm3 (0.0-0.4); Eosinophils % 2.1 % (0.1-12.0); Hematocrit 44.2 % (42.0-52.0); Hemoglobin 15.3 g/dL (14.1-18.0); Lymphocytes # 4.3 K/mm3 (0.7-4.5); Lymphocytes % 42.6 % (10-50); Mean Corpuscular HGB Conc 34.6 g/dL (31.8-35.4); Mean Corpuscular Volume 89.5 fl (80-94); Mean Platelet Volume 9.9 fl (7.4-10.4); Monocytes # 0.8 K/mm3 (0.1-1.0); Monocytes % 7.6 % (1.7-9.3); Neutrophils # 4.7 K/mm3 (1.8-7.8); Neutrophils % 46.7 % (37.0-80.0); Platelet Count 222 K/mm3 (142-424); Red Blood Count 4.94 M/mm3 (4.60-6.20); Red Cell Distribution Width 13.1 % (11.5-17.5)
[2024-12-10 12:48] LABS: Alanine Aminotransferase 36 U/L (12-78); Albumin/Globulin Ratio 1.3 (1.1-1.8); Alkaline Phosphatase 63 U/L (38-126); Anion Gap 13.2 mEq/L (5-15); Aspartate Amino Transferase 25 U/L (17-59); Bilirubin,Total 0.6 mg/dl (0.2-1.3); Blood Urea Nitrogen 18 mg/dl (9-20); Calcium 9.7 mg/dl (8.4-10.2); Carbon Dioxide 26 mmol/L (22.0-30.0); Chloride 104 mmol/L (98-107); Estimated Glomerular Filt Rate 116 ml/min (>60); GFR (African American) 141 ML/MIN (>60); Glucose 89 mg/dl (74-100); Potassium 4.2 mmoL/L (3.5-5.1); Sodium 139 mmol/L (136-145)
[2024-12-10 12:54] LABS: C-Reactive Protein 1.5 mg/L (0-4)
[2024-12-10 13:23] LABS: Erythrocyte Sedimentation Rate 1 mm/hr (0-20)
[2024-12-10 13:59] LABS: Eosinophils % 2 % (0-3); Lymphocytes % 44 % (10-50); Monocytes % 5 % (2-9); Neutrophils % 49 % (42-76); Total Cells Counted 100
[2024-12-10 14:00] LABS: Platelet Estimate Normal; RBC Morphology Normal
[2024-12-12 16:20] LABS: QuantiFERON-TB Gold Plus Negative (Negative)
== END 2024-12-10 23:59 | disposition home or self-care (01) ==
LOC: LAB 11:48
PROVIDERS: PCP Physician Assistant; Visit Provider Nurse Practitioner Family
DX: M05.79 Rheumatoid arthritis with rheumatoid factor of multiple sites without organ or systems involvement (principal); D84.821 Immunodeficiency due to drugs; Z79.899 Other long term (current) drug therapy; R53.83 Other fatigue
CPT/HCPCS: 36415; 80053; 85007; 85014; 85018; 85048; 85049; 85651; 86140; 86480

== ENCOUNTER 2025-03-08 11:32 | Outpatient (CLI) | payer OTHER, SELFPAY ==
--- OUTSIDE RECORDS SUMMARY | 2025-03-08 11:43 | XMS_ITS | Encounter Summary ---
Author Organization Healthcare Address [address] [place] [address] Care Team Providers Care Consumer Banker Name Role Phone Yasmin Kenyon Primary Care Provider [phone] Encounter Details Date Type Department Care Team (Late st Contact Info) Description 12/27/2023 Orders Only External Location [address] [place] [address] Peter Calderon MD [address] [place] [id number] Social History Tobacco Use Types Packs/Day Years Used Date Smoking Tobacco: Never Assessed Sex and Gender Information Value Date Recorded Sex Assigned at Not on file Legal Sex Male 10:48 AM EDT Gender Identity Not on file Sexual Orientation Not on file documented as of this encounter Plan of Treatment Not on file documented as of this encounter Procedures Procedure Name Priority Date/Time Associated Diagnosis Comments US OUTSIDE IMAGES 12/27/2023 7:23 AM EDT documented in this encounter Results * US OUTSIDE IMAGES (12/27/2023 7:23 AM EDT) Anatomical Region Laterality Modality Ultrasound 12/27/2023 7:23 AM EDT us Peter Calderon MD IMG US PROCEDURES Final Resu lt documented in this encounter Visit Diagnoses Not on filedocumented in this encounter Care Teams Consumer Banker Relationship Specialty Start Date End Date Yasmin Kenyon PA [address] [place] [address] PCP - General 06/28/24 documented as of this encounter
--- OUTSIDE RECORDS SUMMARY | 2025-03-08 11:43 | XMS_ITS | Clinical Summary ---
Author Organization [facility] Address [address] [place] [address] Care Team Providers Care Community Health Consultant Name Role Phone Yasmin Kenyon Primary Care Provider [phone] Allergies No known active allergies Medications celecoxib (CeleBREX) 200 MG capsule Take 1 capsule (200 mg) by mouth 1 (one) time each day. 4 Active GNP D 1000 25 MCG (1000 UT) capsule Take 1 capsule (1,000 Units) by mouth 1 (one) time each day. 4 Active ergocalciferol 1.25 MG (79356 UT) capsule Take 1 capsule (50,000 Units) by mouth 1 (one) time per week. 4 Active Enbrel SureClick 50 MG/ML injection INJECT 1 ML SUBCUTANEOUSLY ONCE A WEEK DIRECTED 4 Active folic acid (Folvite) 1 MG tablet Take 3 tablets (3,000 mcg) by mouth 1 (one) time each day. 4 Active lansoprazole (Prevacid) [address] capsule Take 1 capsule (30 mg) by mouth 2 (two) times a day. 4 Active levETIRAcetam (Keppra) 1000 MG tablet TAKE ONE TABLET BY MOUTH TWICE DAILY FOR seizures 4 Active methotrexate 2.5 MG tablet Take 6 tablets (15 mg total) by mouth every 7 (seven) days. Active omeprazole (PriLOSEC) [address] capsule Take 1 capsule (40 mg) by mouth 1 (one) time each day. 4 Active pantoprazole (Protonix) 40 MG EC tablet Take 1 tablet (40 mg) by mouth 1 (one) time each day. Active predniSONE (Deltasone) 20 MG tablet TAKE ONE TABLET BY MOUTH TWICE DAILY FOR 5 DAYS ---TAKE WITH FOOD OR MILK--- 4 Active valACYclovir (Valtrex) 1 g tablet Take 1 tablet (1,000 mg) by mouth twice a day. 4 Active Active Problems No known active problems Family History Medical History Relation Name Comments Cancer Father Kelley Relation Name Status Comments Father Kelley Social History Tobacco Use Types Packs/Day Years Used Date Smoking Tobacco: Former Cigarettes 3 15 1 980 - 09/12/2009 Smokeless Tobacco: Never Tobacco Cessation:Counseling Given: Not Answered Alcohol Use Standard Drinks/Week Comments Yes 0 (1 standard drink = 0.6 oz pur e alcohol) social Sex and Gender Information Value Date Recorded Sex Assigned at Not on file Legal Sex Male 10:48 AM EDT Gender Identity Not on file Sexual Orientation Not on file Last Filed Vital Signs Vital Sign Reading Time Taken Comments Blood Pressure 136/83 06/28/2024 2:23 PM EDT Pulse 85 06/28/2024 2:23 PM EDT Temperature 36.5 C (97.7 F) 06/28/2024 2:23 PM EDT Respiratory Rate - - Oxygen Saturation - - Inhaled Oxygen Concentration - - Weight 99.6 kg (219 lb 9.6 oz) 06/28/2024 2:23 P M EDT Height 182.9 cm (6') 06/28/2024 2:23 PM EDT Body Mass Index 29.78 06/28/2024 2:23 PM EDT Plan of Treatment Health Maintenance Due Date Last Done Comments [facility]-Depression Screening 1966 [facility]-HIV Screening 1966 [facility]-Hepatitis C Screening 1966 [facility]-Infant/Child/Adol SDOH Screenings 1966 [facility]- SDOH Screenings 1984 [facility]-Adult SDOH Screenings 1984 [facility]-Hepatitis B Vaccines (1 of 3 - 19+ 3-dose series) 1985 [facility]-Zoster Vaccines (1 of 2) 1985 CT Colonography 12/20/2011 Colonoscopy 12/20/2011 FIT-DNA 12/20/2011 FIT 12/20/2011 FOBT 12/20/2011 Sigmoidoscopy 12/20/2011 [facility]-Colorectal Cancer Screening 12/20/2011 [facility]-Pneumococcal Vaccine: 50 + Years (1 of 1 - PCV) 2016 [id number] Vaccine (2 - Mi xed Product risk series) 03/05/2021 02/05/2021 [facility]-DTaP,Tdap,and Td Vaccine s (1 - Tdap) 01/15/2023 01/14/2023 [facility]-Influenza Vaccine (Seas[place] n Ended) 2025 [facility]-Obesity Intervention Completed 06/28/2024 HPV Vaccines Aged Out No longer eligi ble based on patient's age to complete this topic [facility]-HIB Vaccines Aged Out No longer e ligible based on patient's age to complete this topic [facility]-Hepatitis A Vaccines Aged Out No longer eligible based on patient's age to complete this topic [facility]-IPV Vaccines Aged Out No longer e ligible based on patient's age to complete this topic [facility]-Rotavirus Vaccines Aged Out No lo nger eligible based on patient's age to complete this topic Insurance Care Teams Community Health Consultant Relationship Specialty Start Date End Date Yasmin Kenyon PA [address] [place] [address] [facility] - General 06/28/24
--- OUTSIDE RECORDS SUMMARY | 2025-03-08 11:44 | XMS_ITS | Data Portability ---
Author Organization [employer] Address [address] [place] [address] Assessment No assessment recorded. Plan of Treatment Reminders Order Date Submit Date Provider Last Modified By Organization Details Last Modified Time Details Appointments None recorded. Lab lipid panel, serum 2024 025 [facility] [address] [place], [address], 5 03:07:48 TSH, ultra-sensi tive, serum 2024 025 [facility] [address] [place], [address], 5 03:07:48 PSA, total, serum or plasma 2024 025 [facility]note 3[facility] [address] [place], [address], 5 03:07:49 vitamin D, 25-hydroxy, total, serum 2024 025 [facility] [address] [place], [address], 5 03:07:49 Hepatitis C IgG Ab, qual, serum 2024 025 [facility] [address] [place], [address], 5 03:07:48 HIV 1 + 2, meaningful use set 2024 025 [facility] [address] [facility], [place], [address], 03:07:49 Referral None recorded. Procedures None recorded. Surgeries None recorded. Imaging None recorded. Medication Orders levetiracet am 1,000 mg tablet 2024 025 [facility], [address] [place] [address] [address] [place], [id number], 12:34:57 ergocalcife rol (vitamin D2) 1,250 mcg (50,000 unit) capsule 2024 [facility], [address] [place] [address] E [place], [id number], 12:09:32 cholecalcif linda (vitamin D3) 50 mcg (2,000 unit) capsule 2024 [facility], [address] [place] [address] [address] [place], [id number], 5 12:34:56 urea 10 %-alpha hydroxy acids 4 % topical cream 2024 025 [facility], [address] [place] [address] [address] [place], [id number], 14:30:26 Patient TargetsNo targets recorded. Patient Instructions Encounter Date Encounter Id Patient Instructions Last Modified By Organization Details Last Modified Time 12/24/2024 [id number] epilepsy: care instructions [email or web address] Not available 12/24/2024 11:40:26 body mass index: care instructions Not available 12/25/2024 10:50:55 learning about healthy weight [email or web address] Not available 12/25/2024 10:50:55 dry skin: care instructions [email or web address] Not available 12/24/2024 11:28:37 Reason for Referral None Reported. Results Created Date Observation Date Name Description Value Unit Range Abnormal Flag Note LastModifiedBy Organization Detail LastModifiedTime 12/25/1912/26/2024 LIPID PANEL cholesterol, total 223 mg/dL 100-19 9 above high normal Not Available [facility]) [address] [facility], [place], [address], 12/26/2024 03:07:48 12/25/1912/26/2024 LIPID PANEL triglyceride s 183 mg/dL 0-149 above high normal Not Available [facility] ([facility]) [address] [place], [address], 12/26/2024 03:07:48 12/25/1912/26/2024 LIPID PANEL HDL cholesterol 60 mg/dL >39 normal Not Available [facility] [address] [place], [address], 12/26/2024 03:07:48 12/25/19 25 12/26/2024 LIPID PANEL VLDL cholesterol ariel 32 mg/dL 5-40 Not Available [facility]) [address] [place], [address], 12/26/2024 03:07:48 12/25/1912/26/2024 LIPID PANEL LDL chol calc ([facility]) 131 mg/dL 0-99 above high normal Not Available [facility] ([facility]) [address] [place], [address], 12/26/2024 03:07:48 12/25/1912/26/2024 LIPID 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 Not Available [facility]) [address] [place], [address], 12/26/2024 03:07:48 12/25/19 25 12/25/2024 HCV ANTIB TRELL CASCA DE(PC R/GEN O) HCV Ab Non Reacti ve non reacti ve Not Available [facility] ([facility]) [address] [facility], [place], [address], 12/26/2024 03:07:48 12/25/1912/25/2024 HCV ANTIB TERLL CASCA DE(PC R/GEN O) interpretati on: Commen t Not infec evan with HCV unles s early or acute infec tion is suspe cted (whic h may be delay ed in an immun ocomp romis ed indiv idual ), or other evide nce exist s to indic ate HCV infec tion. Not Available [facility] ([facility]) [address] [facility], [place], [address], 12/26/2024 03:07:48 12/25/1912/26/2024 TSH TSH 0.525 uIU/m L 0.450- 4.500 normal Not Available [facility] ([facility]) [address] [facility], [place], [address], 12/26/2024 03:07:48 12/25/1912/25/2024 VITAM IN D, 25-HY DROXY vitamin D, 25-hydroxy 59.0 NG/mL 30.0-1 00.0 Vitam in D defic iency has been defin ed by the Insti tute of Medic ine and an Endoc rine Socie ty pract ice guide line as a level of serum 25-OH vitam in D less than 20 ng/mL (1,2) . The Endoc rine Socie ty went on to furth er defin e vitam in D insuf ficie ncy as a level betwe en 21 and 29 ng/mL (2). 1. IOM (Inst itute of Medic ine). 2010. Dieta ry refer ence intelsa es for calci um and D. Ksenia lux [place]: The Natio nal [facility] Press . 2. Rohan burnett MF, Casandra ey [place], Andreina off-F errar i TAYLOR, et al. Evalu ation , treat ment, and preve ntion of vitam in D defic iency : an Endoc rine Socie ty clini ariel pract ice guide line. JCEM. 2010; 96(7) :1911 -30. Not Available [facility] ([facility]) [address] [facility], [place], [address], 12/26/2024 03:07:49 12/25/19 25 12/25/2024 HIV AB/P2 4 AG WITH REFLE X HIV Ab/P24 Ag screen Non Reacti ve non reacti ve HIV Negat jaylyn HIV-1 /HIV- 2 antib odies and HIV-1 p24 antig en were NOT detec evan. There is no labor atory evide nce of HIV infec tion. Not Available [facility] ([facility]) [address] [facility], [place], [address], 12/26/2024 03:07:49 12/25/19 25 12/26/2024 PROST ATE SPECI FIC AG, SERUM prostate specific Ag 1.1 NG/mL 0.0-4. 0 normal Oliverio ECLIA metho dolog y. Accor ding to the Ameri can Urolo gical Assoc iatio n, Serum PSA shoul d decre ase and remai n at undet ectab le level s after radic al prost atect yuniel. The AUA defin es bioch emica l recur rence as an initi al PSA value 0.2 ng/mL or great er follo wed by a subse quent confi rmato ry PSA value 0.2 ng/mL or great er. Value s obtai lady with diffe rent assay metho ds or kits canno t be used inter [place] eably . Resul ts canno t be inter prete d as absol pipo evide nce of the prese nce or absen ce of donald villatoro se. Not Available [facility] ([facility]) [address] [facility], [place], [address], 12/26/2024 03:07:49 Result Notes None recorded. Problems Name Problem SNOMED Code Status Onset Date Resolution Date Notes Provider Name and Address Organization Details Recorded Time Gastroesophage al reflux disease without esophagitis 551505224 Active 2024 NICHO Russo [address] [place] [address], [phone], [employer] 5 11:39:49 Dry skin dermatitis 518978150 Active 2024 NICHO Russo [address] [place] [address], [phone], [employer] 5 11:28:03 Rheumatoid arthritis 33224776 Active 2024 NICHO Russo [address] [place] [address], [address] 8, [employer] 5 11:39:43 Seizure disorder 820927390 Active 2024 NICHO Russo [address] [place] [address], [phone] 8, [employer] 5 10:51:05 Hyperlipidemia 50800464 Active 2024 NICHO Russo [address] [place] [address], [phone] 8, [employer] 5 10:04:50 Problem Notes None recorded. Medical Equipment None Reported. Allergies No known drug allergies Medications Name Sig Start Date Stop Date Status Note LastModified by Organization Details LastModified Time celecoxib 200 mg capsule TAKE ONE CAPSULE BY MOUTH EVERY DAY active Not Available Not Available No t Available amoxicillin 500 mg capsule TAKE TWO CAPSULES BY MOUTH TWICE DAILY -- FINISH ALL MEDICINE -- 12/22 completed Not Available Not Available Not Available valacyclovi r 1 gram tablet TAKE ONE TABLET BY MOUTH TWICE DAILY 2024 active Not Available Not Available Not Avai lable clarithromy rosemary 500 mg tablet TAKE ONE TABLET BY MOUTH TWICE DAILY FOR FOURTEEN DAYS -- FINISH ALL MEDICINE -- 12/22 completed Not Available Not Available Not Available hydrocodone 5 mg-acetamin ophen 325 mg tablet TAKE ONE TABLET BY MOUTH EVERY 4 HOURS NEEDED FOR PAIN FOR fracture pain MAY CAUSE DROWSINES S 12/22 completed Not Available Not Available Not Available prednisone 20 mg tablet TAKE ONE TABLET BY MOUTH TWICE DAILY FOR 5 DAYS ---TAKE WITH FOOD OR MILK--- 12/22 completed Not Available Not Available Not Available omeprazole 40 mg capsule,del ayed release TAKE ONE CAPSULE BY MOUTH EVERY DAY 2024 active Not Available Not Available Not Avai lable triamcinolo ne acetonide 0.1 % topical cream APPLY TOPICALLY TO THE AFFECTED AREA(S) TWICE DAILY NEEDED FOR RASH 12/22 completed Not Available Not Available Not Available methotrexat e sodium 2.5 mg tablet TAKE FOUR TABLETS BY MOUTH ONCE A WEEK 12/22 completed Not Available Not Available Not Available neomycin-po lymyxin-dex ameth 3.5 mg/mL-10,00 0 unit/mL-0.1 % eye drops INSTILL 1 DROP INTO THE AFFECTED EYE(S) FOUR TIMES DAILY FOR 4 TO 7 DAYS 12/22 completed Not Available Not Available Not Available lansoprazol e 30 mg capsule,del ayed release TAKE ONE CAPSULE BY MOUTH TWICE DAILY 12/22 completed Not Available Not Available Not Available folic acid 1 mg tablet TAKE THREE TABLETS BY MOUTH EVERY DAY active Not Available Not Available No t Available ergocalcife rol (vitamin D2) 1,250 mcg (50,000 unit) capsule Take 1 capsule every week by oral route for 90 days, for Vitamin D deficienc y. 2024 active Not Available Not Available Not Avai lable Lipitor 10 mg tablet Take 1 tablet every day by oral route at bedtime for 90 days. 2024 active Not Available Not Available Not Avai lable oxycodone 5 mg tablet TAKE ONE TABLET BY MOUTH EVERY 8 HOURS NEEDED FOR PAIN (pain scale score 7-10) MAY CAUSE DROWSINES S 12/22 completed Not Available Not Available Not Available cholecalcif linda (vitamin D3) 25 mcg (1,000 unit) capsule TAKE ONE CAPSULE BY MOUTH EVERY DAY active Not Available Not Available No t Available levetiracet am 1,000 mg tablet Take 1 tablet every 12 hours by oral route for 90 days. 2024 active Not Available Not Available Not Avai lable Enbrel SureClick 50 mg/mL (1 mL) subcutaneou s pen injector INJECT 1 ML UNDER THE SKIN INTO THE APPROPRIA TE AREA DIRECTED EVERY 7 DAYS active Not Available Not Available No t Available cholecalcif linda (vitamin D3) 50 mcg (2,000 unit) capsule Take 1 capsule every day by oral route for 90 days. 2024 active Not Available Not Available Not Rell Connell (with AHA) 10 %-4 % topical cream APPLY TOPICALLY TO THE AFFECTED AREA(S) TWICE DAILY FOR DRY SKIN active Not Available Not Available No t Available Vitals Date Recorded Body height Body mass index (BMI) Body weight Body temperature Heart rate Oxygen saturation Oxygen saturation in Arterial blood by Pulse oximetry Systolic blood pressure Diastolic blood pressure Provider Name and Address Organization Details Last Updated DateTime 182.88 cm 30.2 kg/m2 564173. 66 g 97.5 [degF] 68 /min 95 % 95 % 130 mm[Hg] 80 mm[Hg] [facility]. 10:46:29 Social History Question Answer Notes LastModified by Organizat ion Details LastModified Time Tobacco Smoking Status [facility] 12/24/2024 10:42:33 Do You Have An Advance Directive? No Information not available 12/24/2024 Is Your Home Air Conditioned? Yes Information not available 12/24/2024 Do You Wear A Helmet When Biking? No Information not available 12/24/2024 Are You Blind Or Do You Have Difficulty Seeing? No Information not available 12/24/2024 What Is Your Level Of Caffeine Consumption? Moderate Information not available 12/24/2024 What Type Of Shank Archer Do You Use? None Information not available 12/24/2024 Have You Been To An Area Known To Be High Risk For COVID-19? No Information not available 12/24/2024 Are You Deaf Or Do You Have Serious Difficulty Hearing? No Information not available 12/24/2024 What Type Of Diet Are You Following? REGULAR Information not available 12/24/2024 What Is The Highest Grade Or Level Of School You Have Completed Or The Highest Degree You Have Received? 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 2 Information not available 12/24/2024 Have There Been Any Changes To Your Family Or Social Situation? No Information no t available 12/24/2024 When Did You Quit Smoking? 11-15yearssin tod te Information not available 12/24/2024 Are There Any Guns Present In Your Home? Yes Information not available 12/24/2024 Which Of Your Hands Is Dominant? Right Information not available 12/24/2024 What Is Your Home Situation? Other Information not available 12/24/2024 Do You Have A Medical Power Of Medical Service Technician? No Information not available 12/24/2024 What Was The Date Of Your Most Recent Tobacco Screening? 12/24/2024 Information not available 12/24/2024 Are There Any Occupational Health Risks Where You Work? No Information not available 12/24/2024 What Is Your Current Pack Years? 10packyears Information not available 12/24/2024 Do You Have Any Pets? Yes Information not available 12/24/2024 Do You Use Protection During Sex? No Information not available 12/24/2024 What Is Your Relationship Status? Information not available 12/24/2024 Have You Repeated Any Grades? No Information not available 12/24/2024 Do You Use Your Seat Belt Or Car Seat Routinely? Yes Information not available 12/24/2024 Are You Sexually Active? Yes Information not available 12/24/2024 Do You Have Any Siblings? 2 Information not available 12/24/2024 Do You Have Smoke And Carbon Monoxide Detectors In Your Home? Yes Information not available 12/24/2024 At What Age Did You Start Smoking Tobacco? 13 Information not available 12/24/2024 Are You Passively Exposed To Smoke? No Information no t available 12/24/2024 Are There Any Smokers In Your House? No Information not available 12/24/2024 How Much Tobacco Do You Smoke? No Information not available 12/24/2024 Do You Use Sunscreen Routinely? No Information not available 12/24/2024 Has Tobacco Cessation Counseling Been Provided? No Information not available 12/24/2024 How Many Years Have You Smoked Tobacco? 25 Information not available 12/24/2024 Have You Recently Traveled Abroad? No Information not available 12/24/2024 Do You Have Difficulty Walking Or Climbing Stairs? No Information not available 12/24/2024 Are You Currently In School? No Information not available 12/24/2024 Do You Have Any Dietary Restrictions? No Information not available 12/24/2024 Sex: Unknown Functional Status Question Answer Note LastModified by Organizat ion Details LastModified Time Do you use any illicit or recreational drugs? No Information not available 12/24/2024 Do you or have you ever used any other forms of tobacco or nicotine? No Information not available 12/24/2024 What is your level of alcohol consumption? None Information not available 12/24/2024 Are you currently employed? Yes Information not available 12/24/2024 Do you have transportation difficulties? No Information not available 12/24/2024 Are you able to walk? YESWOREST Information not available 12/24/2024 Do you have difficulty doing errands alone? No Information not available 12/24/2024 Are you able to care for yourself? Yes Information n ot available 12/24/2024 Do you have difficulty dressing or bathing? No Information not available 12/24/2024 What is your exercise level? Occasional Information not available 12/24/2024 Mental Status Question Answer Note LastModified by Organizat ion Details LastModified Time Do you feel stressed (tense, restless, nervous, or anxious, or unable to sleep at night)? [id number] Information not available 12/24/2024 Do you have difficulty concentrating, remembering or making decisions? No Information no t available 12/24/2024 Are you or have you been involved with bullying? No Information not available 12/24/2024 Family History Relationship Description Onset Age of this Age Resolved Age Notes LastModified by Organization Details LastModified Time Father Hypercholest erolemia Not available 2024 10:47:36 Father Malignant tumor of esophagus Not available 2024 10:47:51 Medical History Condition Response Acid Reflux (GERD) Y Rheumatoid Arthritis Y Immunizations Vaccine Type Date Status Note Provider Nam e and Address Organization Details Recorded Time SARS-COV-2 (COVID-19) vaccine, UNSPECIFIED 1 completed Not Available Pending sale to [facility] 12/24/2024 10:40:29 Td (adult) 3 completed Not Available Pending sale to [facility] 12/24/2024 10:40:29 Past Encounters Encounter ID Performer Location Encounter Start Date Encounter Closed Date Diagnosis/Indication Diagnosis SNOMED-CT Code Diagnosis ICD10 Code Diagnosis Note [id number] NICHO Russo [facility] [address] [place] [phone] 2 12/24/2024 10:40:17 12/24/2024 11:27:54 Hyperlipidemia screening 086106314 Z13.220 Thyroid di sorder screening 088518548 Z13.29 Vitamin D deficiency 347 71178 E55.9 HIV screening 282851059 Z11.4 Hepatitis C screening 41 6444720 Z11.59 Screening for malignant neoplasm of prostate 096750322 Z12.5 Dry skin dermatitis 2600 19763 L85.3 Seizure disorder 6760534 02 G40.909 Body mass index 30+ - obesity 964601142 Z68.30 Health Concerns Section Related Observation LastModified by Organization Detai ls LastModified Time None Recorded Concern Status LastModified by Organization Details LastModified Time None Recorded Advance Directives Directive N: Payers Insurance Date Sequence Insurance Name Policy Number Policy Jeff Covered Member ID Jeff Member ID Guarantor Name 12/23/2024 1 [facility] [id number] Yuko Iraheta [id number] Devang Iraheta Notes Date Note Type Note Provider Name and Address Organization Details Recorded Time 12/24/2024 text/html Patient presents to establish care.History of rheumatoid arthritis.History of seizure disorder, GERD.History of vitamin D deficiency.C/O extremely dry skin, especially on hands. NICHO Russo [address] [place] [address], [phone], [facility] [employer] 12/25/2024 10:51:47
[2025-03-08 12:10] LABS: Basophils # 0.1 K/mm3 (0-0.2); Basophils % 0.7 % (0.1-2.0); Eosinophils # 0.2 Kmm3 (0.0-0.4); Eosinophils % 2.1 % (0.1-12.0); Hematocrit 42.8 % (42.0-52.0); Hemoglobin 14.8 g/dL (14.1-18.0); Immature Granulocytes # 0.02 10^3uL; Immature Granulocytes % 0.2 %; Lymphocytes # 4.7 K/mm3 (0.7-4.5); Lymphocytes % 42.1 % (10-50); Mean Corpuscular HGB Conc 34.6 g/dL (31.8-35.4); Mean Corpuscular Hemoglobin 30.7 pg (27.0-31.2); Mean Corpuscular Volume 88.8 fl (80-94); Mean Platelet Volume 10.4 fl (7.4-10.4); Monocytes % 8.6 % (1.7-9.3); Neutrophils # 5.2 K/mm3 (1.8-7.8); Neutrophils % 46.3 % (37.0-80.0); Nucleated Red Blood Cells # 0 10^3/uL; Nucleated Red Blood Cells % 0 %; Platelet Count 228 K/mm3 (142-424); Red Blood Count 4.82 M/mm3 (4.60-6.20); Red Cell Distribution Width 13.5 % (11.5-17.5); Red Cell Distribution Width-SD 43.9 fL; White Blood Count 11.2 K/mm3 (4.8-10.8)
[2025-03-08 12:28] LABS: Chloride 104 mmol/L (98-107)
[2025-03-08 12:29] LABS: Albumin Level 4.4 g/dl (3.5-5.0); Potassium 4.3 mmoL/L (3.5-5.1); Sodium 138 mmol/L (136-145)
[2025-03-08 12:31] LABS: Blood Urea Nitrogen 18 mg/dl (9-20); Estimated Glomerular Filt Rate 99 ml/min (>60); GFR (African American) 120 ML/MIN (>60)
[2025-03-08 12:32] LABS: Alanine Aminotransferase 36 U/L (12-78); Albumin/Globulin Ratio 1.4 (1.1-1.8); Alkaline Phosphatase 69 U/L (38-126); Anion Gap 16.3 mEq/L (5-15); Aspartate Amino Transferase 27 U/L (17-59); Bilirubin,Total 0.7 mg/dl (0.2-1.3); Calcium 9.1 mg/dl (8.4-10.2); Carbon Dioxide 22 mmol/L (22.0-30.0); Globulin 3.2 g/dL (1.3-3.2); Glucose 101 mg/dl (74-100); Total Protein,Serum 7.6 g/dl (6.3-8.2)
[2025-03-08 12:38] LABS: C-Reactive Protein 2.3 mg/L (0-4)
[2025-03-08 13:09] LABS: Erythrocyte Sedimentation Rate 6 mm/hr (0-20)
== END 2025-03-08 23:59 | disposition home or self-care (01) ==
LOC: LAB 11:33
PROVIDERS: PCP Physician Assistant; Visit Provider Internal Medicine Rheumatology
DX: M05.79 Rheumatoid arthritis with rheumatoid factor of multiple sites without organ or systems involvement (principal)
CPT/HCPCS: 36415; 80053; 85025; 85651; 86140